=== PATIENT | female | born 2000 | race Caucasian/White ===

== ENCOUNTER 2022-12-19 17:21 | Emergency (ER) | payer OTHER, SELFPAY ==
[2022-12-19 17:57] VITALS: BP 117/78; PULSE 106; RESP 18; TEMP 36.9; O2SAT 99; BMI 3374.4
--- NOTE | 2022-12-19 17:57 | ED_ITS ---
HPI - Eye Problem General Chief complaint: Eye Problems <SYED Meehan - Last Filed: 12/19/22 18:04> Stated complaint: left eye blurry vision, injury from contacts <SYED Meehan - Last Filed: 12/19/22 18:04> Time Seen by Provider: 12/19/22 18:58 <SYED Meehan - Last Filed: 12/19/22 18:04> Source: patient <Viridiana Lamb MD - Last Filed: 12/19/22 19:33> Mode of arrival: ambulatory <Viridiana Lamb MD - Last Filed: 12/19/22 19:33> Limitations: no limitations <Viridiana Lamb MD - Last Filed: 12/19/22 19:33> History of Present Illness HPI Narrative: 22-year-old female came in for evaluation of left eye blurry vision for the past week, patient is here insisting on Reyes lens irrigation of the left eye with normal looking left eye with no redness or injection or discharge. About a week ago patient reportedly had Reyes lens irrigation to the right eye at [facility] last week because patient insisted to have it done after she looked it up online, patient was evaluated by an eye doctor last week who reassured the patient and was told everything is fine and does not need irrigation however patient presented to the ED today insisting on Reyes lens irrigation of the left eye. Patient with history of OCD she would feel much better if she has Reyes lens placed in her left eye and irrigated. <Viridiana Lamb MD - Last Filed: 12/19/22 19:33> Related Data Allergies/adverse reactions: Allergies Allergy/AdvReac Type Severity Reaction Status Date / Time No Known Allergies Allergy Verified 12/19/22 18:04 <SYED Meehan - Last Filed: 12/19/22 18:04> Review of Systems Review of Systems: All other systems are reviewed and are negative Constitutional: Reports as per HPI and Reports no additional constitutional complaints Eyes: Reports as per HPI and Reports no additional eye complaints Reports system reviewed and no additional complaints, except as documented Cardiovascular: Reports as per HPI and Reports no additional cardiovascular complaints Respiratory: Reports as per HPI and Reports no additional respiratory complaints Gastrointestinal: Reports as per HPI and Reports no additional gastrointestinal complaints Genitourinary: Reports no additional female genitourinary complaints Musculoskeletal: Reports no additional musculoskeletal complaints Skin/Breast: Reports system reviewed and no additional complaints, except as docu Psychiatric: Reports no additional psychiatric complaints Endocrine: Reports no additional endocrine complaints Hematologic/Lymphatic: Reports no additional hematologic/lymphatic complaints Allergic/Immunologic: Reports no additional allergic/immunologic complaints Reports system reviewed and no additional complaints, except as documented and Reports Abnormal speech present <Viridiana Lamb MD - Last Filed: 12/19/22 19:33> [facility] Social History Social History: Social History Advance Directives: No Advance Directives Information Provided: No <SYED Meehan - Last Filed: 12/19/22 18:04> Physical Exam Vital Signs: Vital Signs: Last Vital Signs Temp 98.5 F 12/19/22 17:57 Pulse 106 H 12/19/22 17:57 Resp 18 12/19/22 17:57 BP 117/78 12/19/22 17:57 Pulse Ox 99 12/19/22 17:57 O2 Del Method Nasal Cannula 12/19/22 17:57 BMI result Body Mass Index 3374.4 <SYED Meehan - Last Filed: 12/19/22 18:04> Vital Signs: Last Vital Signs Temp 98.5 F 12/19/22 17:57 Pulse 106 H 12/19/22 17:57 Resp 18 12/19/22 17:57 BP 117/78 12/19/22 17:57 Pulse Ox 99 12/19/22 17:57 O2 Del Method Nasal Cannula 12/19/22 17:57 BMI result Body Mass Index 3374.4 Vital signs have been reviewed as appeared to be correct. Blood pressure normal. Heart rate normal. Respiration rate normal. Temperature normal. Oxygen saturation normal. <Viridiana Lamb MD - Last Filed: 12/19/22 19:33> Appearance: Anxious, Alert. Oriented X3. No acute distress. Head: Normal external exam. Normocephalic. Atraumatic. No Dotson signs noted. No raccoon eyes noted Eyes: PERRLA. EOMI. Conjunctiva and sclera normal. Eyelids normal. VA 20/20 right/20/20 left, normal clear sclera, no corneal abrasion, no foreign body is appreciated under eyelids bilaterally. unremarkable retinal exam. ENT: TM's Normal. Pharynx normal. Uvula midline. Moist mucous membranes. No trismus noted. No drooling noted. No muffled voice noted. Neck: Normal inspection. Neck supple. FROM. No adenopathy. Thyroid Normal. No meningeal signs. No neck mass noted. CVS: Normal heart rate and rhythm. Heart sound normal. No murmurs noted. Pulses normal throughout. Respiratory: No respiratory distress. Painless inspiration. Breath sounds normal. No wheezes/rales/rhonchi noted. Chest nontender. No accessory muscle usage noted or decreased air movement noted. Abdomen: Soft and nontender. Bowel sounds normal in all 4 quadrants. No distention noted. No organomegaly noted. No visible injury noted. Back: No CVA tenderness. Full range of motion noted. Skin: Skin warm and dry. Normal skin color. Normal skin turgor. No rashes/lesions/lacerations noted. Extremities: No lower extremity edema. Extremities exhibit normal range of motion. Extremities nontender. Neuro: Oriented X 3. Cranial nerve exam: II-XII are grossly intact No motor deficit. No sensory deficit. Reflexes normal. <Viridiana Lamb MD - Last Filed: 12/19/22 19:33> Course Course Course Narrative: RME - 22 yo female presents to the ER for evaluation of left eye blurriness with ongoing FB sensation after eye lash extensions got into her eyes 1 week ago. Seen at [facility] 1 week ago, had morgans lens wash out on the right eye only and was d/c with erythromycin. Very poor historian, tara in triage. Plan: visual acuity, stain and examine the left eye <SYED Meehan - Last Filed: 12/19/22 18:04> Reevaluation(s) Reevaluation #1: 22-year-old female with history of OCD came in asking for specifically left eye Reyes lens irrigation, I felt there is no indication to place reyes lens with the risk of corneal abrasion, particularly in light of normal visual acuity and eye exam. Patient was evaluated last week as patient reported by eye doctor who also reassured the patient and told the patient there is no indication for the Reyes lens irrigation. After patient reassurance and discussion that there is no indication patient still unhappy. Patient with history of OCD, anxiety, patient declined SI, HI, or auditory hallucination at this point. <Viridiana Lamb MD - Last Filed: 12/19/22 19:33> Time: 19:29 <Viridiana Lamb MD - Last Filed: 12/19/22 19:33> Medical Decision Making Differential Diagnosis Differential Diagnoses: The differential diagnosis associated with the presentation includes (OCD disorder, conjunctivitis, foreign body in the eye.) <Viridiana Lamb MD - Last Filed: 12/19/22 19:33> Discharge Plan Discharge Clinical Impression: Anxiety, Blurry vision, left eye <SYED Meehan - Last Filed: 12/19/22 18:04> Patient Disposition: Home, Self-Care <SYED Meehan - Last Filed: 12/19/22 18:04> Instructions: Generalized Anxiety Disorder (ED) <YSED Meehan - Last Filed: 12/19/22 18:04>
[2022-12-19 19:25] VITALS: BP 128/71; PULSE 74; RESP 16; TEMP 36.8; O2SAT 98
== END 2022-12-19 20:18 | disposition home or self-care (01) ==
PROVIDERS: Emergency Provider Emergency Medicine
DX: F41.9 Anxiety disorder, unspecified (principal); H53.8 Other visual disturbances
CPT/HCPCS: 99283

== ENCOUNTER 2022-12-22 18:43 | Emergency (ER) | payer OTHER, SELFPAY ==
--- NOTE | 2022-12-22 18:46 | ED.GENADULT ---
HPI - General Adult General Chief complaint: Eye Problems <SYED Lino - Last Filed: 12/22/22 18:50> Stated complaint: Seen recently/ blurry eye vision <SYED Lino - Last Filed: 12/22/22 18:50> Time Seen by Provider: 12/22/22 22:46 <SEYD Lino - Last Filed: 12/22/22 18:50> Source: patient, RN notes reviewed and old records reviewed <Masoud Antonio - Last Filed: 12/22/22 23:02> Mode of arrival: ambulatory <Masoud Antonio - Last Filed: 12/22/22 23:02> Limitations: no limitations <Masoud Antonio - Last Filed: 12/22/22 23:02> History of Present Illness HPI narrative: 22-year-old female presents for evaluation of ?I need my left eye irrigated. ? Patient states that she has somewhat blurry vision for the last week and a half. She was seen at [facility] and had a morning and lines flush her left eye after she had an eyelash stuck in it. She was discharged with erythromycin at that time. She came here on 12/19/2022 requesting irrigation of the left eye. Due to the lack of physical exam findings, and Italo lens was not inserted and she did not have any flushing of the left eye. She does not wear contacts or glasses. She reports that she is able to see and read out of both eyes. She denies any foreign body sensation <Masoud Antonio - Last Filed: 12/22/22 23:02> Related Data Allergies/adverse reactions: Allergies Allergy/AdvReac Type Severity Reaction Status Date / Time No Known Allergies Allergy Verified 12/22/22 18:48 <SYED Lino - Last Filed: 12/22/22 18:50> Review of Systems Eyes: Eyes: Denies blind spots, Reports blurry vision, Denies change in vision, Denies eye discharge, Denies dry eyes, Denies floaters, Denies irritation, Denies itchy eyes, Denies loss of vision and Denies eye pain <Masoud Antonio - Last Filed: 12/22/22 23:02> Neurologic: Denies loss of vision <Masoud Antonio - Last Filed: 12/22/22 23:02> Allergic/Immunologic: Allergic/Immunologic: Denies itchy eyes <Masoud Antonio - Last Filed: 12/22/22 23:02> PMFSH Social History Social History: Social History Smoked in Last 30 Days: No Use of substances other than those prescribed or required for medical reasons: No Advance Directives: No Advance Directives Information Provided: Yes Patient : No <SYED Lino - Last Filed: 12/22/22 18:50> Physical Exam ED Vital Signs: Vital Signs - 24 hr 12/22/22 18:48 12/22/22 21:17 Temperature 98.6 F 97.8 F Pulse Rate 87 84 Respiratory Rate 18 14 Blood Pressure 111/70 118/65 Pulse Oximetry 98 99 Oxygen Delivery Method Room Air Room Air BMI result Body Mass Index 24.2 <SYED Lino - Last Filed: 12/22/22 18:50> Vital Signs - 24 hr 12/22/22 18:48 12/22/22 21:17 Temperature 98.6 F 97.8 F Pulse Rate 87 84 Respiratory Rate 18 14 Blood Pressure 111/70 118/65 Pulse Oximetry 98 99 Oxygen Delivery Method Room Air Room Air BMI result Body Mass Index 24.2 <Masoud Antonio - Last Filed: 12/22/22 23:02> Const General: healthy appearing, comfortable, no acute distress, alert and awake <Masoud Antonio - Last Filed: 12/22/22 23:02> Nutritional Appearance: well nourished <Masoud Antonio - Last Filed: 12/22/22 23:02> Orientation/consciousness: patient oriented x3 <Masoud Antonio - Last Filed: 12/22/22 23:02> HENMT Head: Yes normocephalic and Yes atraumatic <Masoud Antonio - Last Filed: 12/22/22 23:02> Throat: Yes posterior oropharynx normal <Masoud Antonio - Last Filed: 12/22/22 23:02> Eyes Eyelids: Yes eyelids normal <Masoud Antonio - Last Filed: 12/22/22 23:02> Conjunctivae: conjunctivae normal <Masoud [employer] - Last Filed: 12/22/22 23:02> Sclerae: sclerae normal <Masoud [employer] - Last Filed: 12/22/22 23:02> Corneas: corneas normal <Masoud [employer] - Last Filed: 12/22/22 23:02> Pupils: Equal, round and reactive pupils present, Pupils normal by confrontation and Pupil accommodation reflex normal <Masoud [employer] - Last Filed: 12/22/22 23:02> EOM: EOMs intact bilaterally <Masoud [employer] - Last Filed: 12/22/22 23:02> Neck Neck: Yes full ROM <Masoud O Last Filed: 12/22/22 23:02> Resp Effort & Inspection: normal respiratory effort, able to speak in complete sentences, no audible wheezes and not labored <Masoud O Last Filed: 12/22/22 23:02> Auscultation: clear to auscultation bilaterally <Masoud Last Filed: 12/22/22 23:02> Cardio Rate: regular rate <Masoud Last Filed: 12/22/22 23:02> Rhythm: regular rhythm <Masoud Last Filed: 12/22/22 23:02> GI Inspection: No distended <Masoud OJairo Filed: 12/22/22 23:02> Palpation (GI): Soft to palpation, not firm, nontender, no guarding and not rigid <Masoud [employer] - Last Filed: 12/22/22 23:02> Auscultation: normoactive bowel sounds <Masoud O Last Filed: 12/22/22 23:02> Skin General skin exam: no rashes or lesions noted and elasticity normal <Masoud OJairo - Last Filed: 12/22/22 23:02> Neuro General: patient oriented x3 <Masoud OJairo - Last Filed: 12/22/22 23:02> Cranial nerves: Yes CN's II-XII intact bilaterally, Yes Equal, round and reactive pupils present and Yes Bilaterally intact EOM present <Masoud Antonio - Last Filed: 12/22/22 23:02> Cognition (Neuro): normal cognition <Masoud Antonio - Last Filed: 12/22/22 23:02> Extrem Other: Moving all extremities well without any obvious deformities <Masoud Antonio - Last Filed: 12/22/22 23:02> Course Course Course Narrative: RME performed by Gianna Callahan PA-C. Patient is a 22 year old assigned female at presenting to the emergency department with left eye irritation. Patient would like to have a Italo lens rinse. Patient placed back in the waiting room pending room availability. <SYED Lino - Last Filed: 12/22/22 18:50> Medical Decision Making Medical Decision Making MDM Narrative: There is no obvious foreign body to left eye, no conjunctival injection, now ulceration, no hyphema. No objective findings of any pathology. The patient describes blurry vision but declines visual acuity testing today. The patient is very adamant that she warm her I irrigated. I did irrigate the eyes with 10 cc of normal saline, flushed only. No more lungs was use. I encouraged the patient to follow-up with ophthalmology for him further eye complaints <Masoud Antonio - Last Filed: 12/22/22 23:02> Differential Diagnosis Anxiety Corneal abrasion Blurry vision Foreign body <Masoud Antonio - Last Filed: 12/22/22 23:02> Discharge Plan Discharge Clinical Impression: Anxiety <SYED Lino - Last Filed: 12/22/22 18:50> Patient Disposition: Home, Self-Care <SYED Lino - Last Filed: 12/22/22 18:50> Instructions: Anxiety (ED) <SYED Lino - Last Filed: 12/22/22 18:50> Additional Instructions: Follow-up with Ophthalmology, Dr. López for any further issues regarding your eyes <SYED Lino - Last Filed: 12/22/22 18:50> Referrals: Josep Ferro [Physician] - <SYED Lino - Last Filed: 12/22/22 18:50>
[2022-12-22 18:48] VITALS: BP 111/70; PULSE 87; RESP 18; TEMP 37; O2SAT 98; BMI 24.2
--- NOTE | 2022-12-22 21:16 | PC.NURSE ---
this rn assumed care of pt @ 2111. pt calm and cooperative awaiting ed provider on stretcher at this time. VSS. pt educated on use of call gottlieb. no new needs at this time
[2022-12-22 21:17] VITALS: BP 118/65; PULSE 84; RESP 14; TEMP 36.6; O2SAT 99
[2022-12-22 23:09] VITALS: BP 111/72; PULSE 87; RESP 18; TEMP 36.6; O2SAT 100
== END 2022-12-22 23:15 | disposition home or self-care (01) ==
PROVIDERS: Emergency Provider Emergency Medicine
DX: F41.9 Anxiety disorder, unspecified (principal)
CPT/HCPCS: 99282; 99284

== ENCOUNTER 2023-01-27 09:00 | Emergency (ER) | payer OTHER, SELFPAY ==
[2023-01-27 09:07] VITALS: BP 105/53; PULSE 91; RESP 16; TEMP 36.9; O2SAT 100; BMI 24.2
--- NOTE | 2023-01-27 09:14 | PC.NURSE ---
Patient presents for HIV testing. 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 Patient states that she touches their things and wants to be sure that she didn't contract HIV from these interactions.
--- NOTE | 2023-01-27 09:16 | ED_ITS ---
HPI - General Adult General Chief complaint: General Medical Stated complaint: HIV testing Time Seen by Provider: 01/27/23 09:16 Source: patient Mode of arrival: ambulatory Limitations: no limitations History of Present Illness HPI narrative: 22 y/o female presents to the ER for possible HIV testing. 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 She denies any known direct bodily fluid exposure. She can recall picking up one of their cups without gloves but does not know if she touched saliva directly and she has no open wounds on her hands. No needle sticks. She thinks they are all on HAART. MD complaint: low risk HIV exposure Onset (ago): week(s) Relieving factors: none Exacerbating factors: none Associated symptoms: denies other symptoms Treatments prior to arrival: none Related Data Allergies Allergy/AdvReac Type Severity Reaction Status Date / Time No Known Allergies Allergy Verified 12/22/22 18:48 Review of Systems Review of Systems: Yes all other systems are reviewed and are negative [facility] Social History Social History Alcohol intake: never Smoked in Last 30 Days: No Use of substances other than those prescribed or required for medical reasons: No Advance Directives: No Advance Directives Information Provided: No Physical Exam ED Vital Signs: Vital Signs - 24 hr 01/27/23 09:07 Temperature 98.4 F Pulse Rate 91 Respiratory Rate 16 Blood Pressure 105/53 L Pulse Oximetry 100 Oxygen Delivery Method Room Air BMI result Body Mass Index 24.2 Appearance: Alert. Oriented X3. No acute distress. HEENT: normal inspection CVS: Normal heart rate and rhythm. Pulses normal. Respiratory: No respiratory distress. speaks in complete sentences Skin: Skin warm and dry. Normal skin color. Normal skin turgor. No rashes. Extremities: normal inspection x4. Neuro: Oriented X 3. grossly normal, nonfocal. stready gait Medical Decision Making Medical Decision Making [facility] Narrative: 22 yo female presents to the ER for evaluation of potential HIV exposure at work. She had no high risk exposure and question of a very low risk exposure. Does not require testing and post-exposure treatment today. She was encouraged to go to [facility] or local [facility] for routine HIV testing. She was counseled and reassured. All questions were answered. stable for d/c home. Differential Diagnosis Differential Diagnoses: The differential diagnosis associated with the presentation includes low risk HIV exposure, high risk HIV exposure, anxiety Critical Care Time Critical Care Time Critical Care Time: No Discharge Plan Discharge Clinical Impression: HIV exposure Patient Disposition: Home, Self-Care Instructions: HIV Infection (DC) Additional Instructions: You had no high risk exposure to HIV. Your risk is extremely low. If you would like routine HIV testing you [facility] [address] [place] [address] [facility] [address] Referrals: [facility] [Provider Group] Interventions: ED Discharge Assessment Last Done: 01/27/23 09:51
[2023-01-27 09:51] VITALS: BP 105/60; PULSE 60; RESP 14; O2SAT 99
== END 2023-01-27 09:52 | disposition home or self-care (01) ==
PROVIDERS: Emergency Provider Emergency Medicine
DX: Z20.6 Contact with and (suspected) exposure to human immunodeficiency virus [HIV] (principal)
CPT/HCPCS: 99283; 99284

== ENCOUNTER 2023-04-08 08:20 | Emergency (ER) | payer OTHER, SELFPAY ==
[2023-04-08 08:25] VITALS: BP 106/68; BP 118/84; PULSE 107; PULSE 95; RESP 16; TEMP 36.6; O2SAT 97; O2SAT 99; BMI 24.2
--- NOTE | 2023-04-08 08:30 | ED.GENADULT ---
HPI - General Adult General Chief complaint: General Medical Stated complaint: CHOKED ON RICE/FEELS IN UPPER CHEST PER EMS Source: patient and EMS Mode of arrival: EMS Limitations: no limitations History of Present Illness HPI narrative: 22-year-old female presents with foreign body sensation in throat patient reports last night she choked on rice. Since then has been having a weird sensation in throat. She states she feels like it is in the middle of her throat. She has not been able to drink water or eat she states because it is difficult to swallow. One of her fears is aspiration pneumonia, she looked it up on google. Denies chest pain, shortness of breath, nausea, vomiting, abdominal pain, headache, vision changes in dizziness Related Data Allergies Allergy/AdvReac Type Severity Reaction Status Date / Time No Known Allergies Allergy Verified 12/22/22 18:48 Review of Systems Review of Systems: Constitutional : No Weight loss, No Fever, No Chills, No Fatigue, No Malaise ENT/Mouth : No sore throat, No Rhinorrhea Eyes: No Eye Pain, No Swelling, No Redness Cardiovascular : No Chest Pain, No SOB, No Dyspnea on Exertion, No Orthopnea, No Edema, No Palpitations Respiratory : No Cough, No Sputum, No Wheezing Gastrointestinal : No Nausea, No Vomiting, No Diarrhea, No Constipation, No abdominal Pain, No Hematochezia, No Melena Genitourinary : No Dysuria, No Urinary Frequency, No Hematuria, Musculoskeletal : No joint pain, No Myalgias, No Joint Swelling Skin : No Skin Lesions, No rash Neuro : No Weakness, No Numbness, No Dizziness, No Headache Psych : No Anxiety/Panic, No Depression All other systems reviewed and are negative Yes all other systems are reviewed and are negative [facility] Past Medical History Attestation statement: The following information was validated with the patient. Source: old records reviewed and nursing notes reviewed Social History Social History Alcohol intake: never Smoked in Last 30 Days: No Use of substances other than those prescribed or required for medical reasons: No Advance Directives: No Advance Directives Information Provided: No Physical Exam ED Vital Signs: Vital Signs - 24 hr 04/08/23 08:25 Temperature 98 F Pulse Rate 95 Respiratory Rate 16 Blood Pressure 106/68 Pulse Oximetry 97 Oxygen Delivery Method Room Air BMI result Body Mass Index 24.2 Vital signs stable Appearance: Alert.? Oriented X3.? No acute distress.? Head: Normocephalic, atraumatic, no step-offs or deformities Eyes: Pupils equal, round and reactive to light.? ENT: Pharynx normal.? Neck: Normal inspection.? Neck supple.? CVS: Normal heart rate and rhythm.? Pulses normal.? Respiratory: No respiratory distress.? Breath sounds normal.? no stridor Abdomen: Soft and nontender.? Skin: Skin warm and dry.? Normal skin color.? Normal skin turgor.? Extremities: No lower extremity edema.? No calf ttp. 5/5 strength to bilateral upper and lower extremities Neuro: Oriented X 3.? No motor deficit.? No sensory deficit. CN 2-12 intact Medical Decision Making Medical Decision Making [facility] Narrative: [id number] 22-year-old female presents with foreign body sensation in throat reports she choked on a rice and since then has been having a weird sensation physical exam benign. No signs of respiratory distress. No stridor. Likely foreign body sensation however unlikely foreign body occluding airway, there could be trauma from choking causing discomfort however no signs of airway compromise. I do not suspect pneumothorax, pneumonia, or acute aspiration PNA . immediately upon patient's arrival I had her swish with yocasta araceli, and spit it out. Patient reports that this helped a lot. Able to tolerate p.o. drinking yocasta araceli without an issue. Tolerating solids. plan will have her swish and spit with yocasta araceli. No indication for imaging. Patient tolerating p.o.. Will have her follow-up with GI. Differential Diagnosis Differential Diagnoses: The differential diagnosis associated with the presentation includes Likely foreign body sensation however unlikely foreign body, there could be trauma from choking causing discomfort however no signs of airway compromise. I do not suspect pneumothorax, pneumonia, aspiration. Admission/Observation Consideration of admission/observation: Escalation of care including admission/observation considered unlikely Tests considered The following testing was considered but not selected: No signs of threatened airway, no stridor respiratory issues, no signs of distress. No indication for imaging. No indication for GI consult at this time it could be done on an outpatient basis. Critical Care Time Critical Care Time Critical Care Time: No Discharge Plan Discharge Clinical Impression: Foreign body sensation in throat Patient Disposition: Home, Self-Care Additional Instructions: Take your medications as prescribed. If you were prescribed antibiotics today, it is important that you take your medication to their entirety, do not skip any doses, do not finish them early. Follow-up with your primary care provider this week. Follow-up with the Gastroenterology team if needed Return to the emergency department with new or worsening symptoms. Such as fevers, chills, chest pain, shortness of breath, nausea, vomiting, dizziness, headache, vision changes, lethargy In case of emergency call 911 Referrals: [facility] [Provider Group] - 1 day
--- NOTE | 2023-04-08 08:34 | PC.NURSE ---
pt axox4, VSS, respirations even and unlabored, sats 98% RA, pt arrived via ems stating was eating rice felt it went down wrong pipe; concerned for aspiration pneumonia. pt states feeling better now; denies cp/sob/n/v/d. lung sounds cta. cap refill <3 seconds. skin wpd. airway patent. awaiting primary eval. call gottlieb within reach.
== END 2023-04-08 09:02 | disposition home or self-care (01) ==
PROVIDERS: Emergency Provider Emergency Medicine
DX: R09.89 Other specified symptoms and signs involving the circulatory and respiratory systems (principal)
CPT/HCPCS: 99283

== ENCOUNTER 2023-06-24 13:24 | Outpatient (AMB) | payer OTHER, SELFPAY ==
--- NOTE | 2023-06-24 14:48 | MHC.OFFWIV ---
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 She states she had an ear infection about 2 weeks ago which she was prescribed augment for and it helped but now it is bakc, she believes its from her ear piece from work. Patient Tobacco Use Status: Never used Tobacco Allergies No Known Allergies Allergy (Verified 06/24/23 15:47) Medication List - Last Reconciled 06/24/23 by Ishmael Morrissey MD hydrocortisone 2.5% 1 appl topical BID PRN jzfcgxat-clujiaqzi-YG 3.5-10,000-1 mg/mL-unit/mL-% 4 drps otic (ears) Q8H Do you need a note to return to daycare/school/sports/work: Yes HPI BARKEEPER RT Ear Infection HPI Details Patient presents for a sick visit. Reporting symptoms of sinus congestion, sore throat and difficulty swallowing. Low-grade fever. No family member is sick. No recent travel. Patient reports symptoms of malaise and fatigue. [facility] Social History Alcohol intake: never Patient Tobacco Use Status: Never used Tobacco Physical Exam Vital Signs: Last Vital Signs Pulse 60 06/24/23 14:50 BP 110/70 06/24/23 14:50 Pulse Ox 98 06/24/23 14:50 Oxygen Delivery Method Room Air 06/24/23 14:50 BMI result Body Mass Index 28.3 HEENT Other: Right ear: Erythema over the external ear: Ear canal is crusted. Assessment & Plan Assessment & Plan (1) Otitis externa: Code(s): H60.90 - Unspecified otitis externa, unspecified ear Qualifiers: Otitis externa type: diffuse Laterality: right Plan Prescriptions have been called in. Medications: New otqobprw-busfphwlh-EA 3.5-10,000-1 mg/mL-unit/mL-% 4 drps otic (ears) Q8H 10 mL 0RF hydrocortisone 2.5% 1 appl topical BID PRN 20 grams 0RF skin irritation hydrocortisone 2.5% 1 appl topical BID PRN 20 grams 0RF skin irritation Coding Level of Care Code Est Pt Level 3 (12921) Diagnoses Otitis externa H60.90 Otitis externa type: diffuse Laterality: right
[2023-06-24 14:50] VITALS: BP 110/70; PULSE 60; O2SAT 98; BMI 28.3
== END 2023-06-24 16:11 | disposition home or self-care (01) ==
LOC: HO.HMGWI 13:24
PROVIDERS: Visit Provider Internal Medicine
DX: H60.91 Unspecified otitis externa, right ear (principal)
CPT/HCPCS: 99213

== ENCOUNTER 2023-07-22 12:02 | Outpatient (AMB) | payer OTHER, SELFPAY ==
--- OUTSIDE RECORDS SUMMARY | 2023-07-22 12:03 | XMS_ITS | Continuity of Care Document ---
Author Name Unknown Organization [facility] Address [address] [place] [id number] Care Team Providers Care Director Payer Name Role Phone Not on Staff, PCP Primary Care Physician Unavail able Encounter [facility] Date(s): 06/10/23 - 07/10/23 [facility] [address] [id number] Allergies, Adverse Reactions, Alerts No Known Allergies Social History Social History Type Response Sex Female Patient Care team information Care Team Personnel Name: Not on Staff, PCP Position: [facility] Physician (General Medicine) Member Role: PCP Care Team Related Persons Name: NAALIA GOETZ Address: home [address] [place] [address] Name: MARLY NAVARRETE Address: home [address] [place] [address]
[2023-07-22 14:29] VITALS: BP 108/70; PULSE 102; TEMP 36.6; O2SAT 98; BMI 27.1
--- NOTE | 2023-07-22 14:29 | MHC.OFFWIV ---
Intake Vital Signs 07/22/23 14:29 Height 4 ft 11 in Weight 60.838 kg BMI 27.1 BP 108/70 Blood Pressure Location Rt brachial Position Sitting Pulse 102 H Pulse Source Pulse Oximeter Temp 97.8 F Temp Source Temporal Artery Scan Pulse Oximetry (%) 98 Intake Visit Reasons: EP, Right ear discharge, still not getting better Intake Note: pt is here for c/o right ear discharge Patient Tobacco Use Status: Never used Tobacco Allergies No Known Allergies Allergy (Verified 07/22/23 14:29) Do you need a note to return to daycare/school/sports/work: Yes HPI EP, Right ear discharge, still not getting better HPI Details Patient presents with continued pain swelling and purulent drainage of the right ear. She was treated 1 month ago with a Zithromax and per chart which she states cleared the infection. Infection returned she has not used any further treatment or otic drops. 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 She has not used any other medications or tried flushing or injuries foreign bodies to her ear at this point. Her hearing is reduced but likely canal is edematous and full of discharge. [facility] Social History Alcohol intake: never Patient Tobacco Use Status: Never used Tobacco Review of Systems Const Reports as per HPI and Reports no additional complaints ENT Reports no additional complaints and Reports as per HPI Neuro Reports no additional complaints and Reports as per HPI Physical Exam Vital Signs: Last Vital Signs Temp 97.8 F 07/22/23 14:29 Pulse 102 H 07/22/23 14:29 BP 108/70 07/22/23 14:29 Pulse Ox 98 07/22/23 14:29 BMI result Body Mass Index 27.1 Const General: cooperative, comfortable and no acute distress Orientation/consciousness: patient oriented x3 HEENT Head: Yes normal to inspection Ears: hearing grossly normal bilaterally, Abnormal EAC present (Right there is purulent drainage blocking the TM and in ear canal), external ear abnormal (Right with noted dried discharge erythema and edema just outside the ear ca) and no periauricular adenopathy Neck Neck: Yes no lymphadenopathy Resp Effort & Inspection: normal respiratory effort Auscultation: clear to auscultation bilaterally Cardio Rate: regular rate Rhythm: regular rhythm Heart sounds: S1 normal heart sound present and S2 normal heart sound present Neuro General: patient oriented x3 Assessment & Plan Assessment & Plan (1) Recurrent otitis externa: Code(s): H60.90 - Unspecified otitis externa, unspecified ear Qualifiers: Laterality: right Qualified Code(s): H60.91 - Unspecified otitis externa, right ear Plan: Patient to start otic drops at this time. I have collected a culture today of the drainage. Will adjust treatment as needed based on culture. Consider Augmentin or Diflucan based on culture results. Advised patient she will receive a call by Saturday with culture results and new plan if needed. Consider referral to ENT p.r.n.. ER in the meantime if severe ear pain fever or facial swelling occur. Orders: Orders Routine Culture w Gram Stain Today H60.90 - Unspecified otitis externa, unspecified ear Medications: Refilled gzezvhpq-smykpqrbt-XD 3.5-10,000-1 mg/mL-unit/mL-% 4 drps otic (ears) Q8H 10 mL 0RF icbrgipl-qazflsxrj-AZ 3.5-10,000-1 mg/mL-unit/mL-% 4 drps otic (ears) Q8H 10 mL 0RF Coding Level of Care Code Est Pt Level 3 (18249) Diagnoses Recurrent otitis externa of right ear H60.91 Laterality: right
== END 2023-07-22 14:53 | disposition home or self-care (01) ==
PROVIDERS: Visit Provider Physician Assistant
DX: H60.91 Unspecified otitis externa, right ear (principal)
CPT/HCPCS: 99213

== ENCOUNTER 2023-07-22 15:19 | Outpatient (REF) | payer OTHER, SELFPAY | END 2023-07-22 15:20 | disposition home or self-care (01) | LOC: HO.LAB 15:19 | PROVIDERS: Visit Provider Physician Assistant | DX: H60.90 Unspecified otitis externa, unspecified ear (principal) | CPT/HCPCS: 87070; 87077; 87186; 87205 ==

== ENCOUNTER 2023-09-11 15:25 | Emergency (ER) | payer OTHER, SELFPAY ==
--- NOTE | ~2023-09-11 | XR_ITS ---
EXAMINATION: XR CHEST CLINICAL INFORMATION: Cough. Intermittent mucus. COMPARISON: None available. TECHNIQUE: 2 views of the chest were obtained. FINDINGS: Lungs clear. No pleural effusions. Heart and pulmonary vessels normal. XR/XR chest 2V IMPRESSION: No active disease.
[2023-09-11 15:55] VITALS: BP 138/87; PULSE 97; RESP 18; TEMP 36.8; O2SAT 99
--- NOTE | 2023-09-11 15:55 | ED.URI ---
HPI - URI/Sore Throat General Chief Complaint: Upper Respiratory Symptoms Stated Complaint: Sore throat, cough, neck pain Time Seen by Provider: 09/11/23 18:19 Source: patient, RN notes reviewed and old records reviewed Mode of arrival: ambulatory History of Present Illness HPI Narrative: 22 yo F w/no sig PMHx presenting to the ED c/o sore throat, cough (intermittently productive), inflamed lymph nodes, and right ear pain x months. Also reports subjective fever. admits to finishing course of oral antibiotics and antibiotic ear drops about 2 weeks ago. denies fever, CP/ SOB, travel MD elicited complaint: cough, sore throat, rhinorrhea and nasal congestion Related Data Previous Rx's Medication Instructions Recorded nplaytew-nuplxrelu-rkmvuclbg 3.5 4 drp otic (ears) Q8H #10 mL 07/22/23 mg-10,000 unit/mL-1 % ear drops,susp sulfamethoxazole 800 1 tab PO Q12H 10 days #20 tabs 07/23/23 mg-trimethoprim 160 mg tablet (Bactrim DS) fluticasone propionate 50 2 spray intranasal DAILY #16 grams 09/11/23 mcg/actuation nasal spray,suspension (Flonase Allergy Relief) prednisone 20 mg tablet 40 mg (2 x 20 mg) PO DAILY 5 days 09/11/23 #10 tabs Allergies Allergy/AdvReac Type Severity Reaction Status Date / Time No Known Allergies Allergy Verified 07/22/23 14:29 Review of Systems Review of Systems: Constitutional: No Fever, +Chills ENT/Mouth: + Ear Pain, +Nasal Congestion, No Sinus Pain, No Hoarseness, +sore throat, +Rhinorrhea, No Swallowing Difficulty Cardiovascular: No Chest Pain, No SOB Respiratory: +Cough, + Sputum, No Wheezing Gastrointestinal: No Nausea, No Vomiting, No Diarrhea, No Constipation, No Abdominal pain Musculoskeletal: No joint pain, +Myalgias, No Joint Swelling Skin: No Skin Lesions, No rash Neuro: No Weakness Yes all other systems are reviewed and are negative Constitutional: Constitutional: Reports as per [facility] Past Medical History Attestation statement: The following information was validated with the patient. Source: old records reviewed Social History Social History Alcohol intake: never Patient Tobacco Use Status: Never used Tobacco Physical Exam Vital Signs: Vital Signs: Last Vital Signs Temp 98.3 F 09/11/23 15:55 Pulse 97 09/11/23 15:55 Resp 18 09/11/23 15:55 BP 138/87 09/11/23 15:55 Pulse Ox 99 09/11/23 15:55 O2 Del Method Room Air 09/11/23 15:55 BMI result Body Mass Index 0.6 Const: General: cooperative, healthy appearing and no acute distress Orientation/consciousness: patient oriented x3 Limitations: no limitations HEENT: Other: cerumen impaction to left ear, partially cleared with curette Head: Yes normal to inspection and Yes atraumatic Ears: hearing grossly normal bilaterally, TM's normal bilaterally and mastoids normal General nose exam: Normal external nose present Face and sinus: Yes normal facial exam Mouth: Normal oral and palatal mucosa present Throat: Yes posterior oropharynx normal, Yes tonsils normal, Yes uvula midline, No peritonsillar mass and No uvula laterally displaced Eyes: General: appearance normal, both eyes and all related structures EOM: EOMs intact bilaterally Neck: Neck: Yes normal visual inspection and Yes no meningeal signs Resp: Effort & Inspection: normal respiratory effort, no respiratory distress and no stridor Auscultation: clear to auscultation bilaterally, no crackles and no wheezes Cardio: Rate: regular rate Heart sounds: S1 normal heart sound present and S2 normal heart sound present Skin: Rashes: no rashes Wounds: no wounds Neuro: General: patient oriented x3, tone normal and no meningeal signs Cranial nerves: Yes CN's II-XII intact bilaterally Gait exam (Neuro): Normal gait present Extrem: General: Yes normal to inspection Course Course Course Narrative: RME: 22 yo M/F w/no sig PMHx presenting to the ED c/o sore throat, cough (intermittently productive), neck pain/inflamed lymph nodes, and right ear pain x months. Reports subj fever talking in complete sentences, no oropharyngeal swelling, uvula midline Viral testing, rapid strep ordered Full HPI, ROS and PE to be performed by primary ED provider. --COVID/FLU & Rapid strep negative XR chest 2V IMPRESSION: No active disease. Results discussed with patient including worrisome signs and symptoms and strict return precautions, and when to return to the emergency department. They verbalized understanding and feel safe for discharge at this time. Medical Decision Making Medical Decision Making [facility] Narrative: 22 yo F w/no sig PMHx presenting to the ED c/o sore throat, cough (intermittently productive), inflamed lymph nodes, and right ear pain x months. On exam VSS, NAD, nontoxic appearing, posterior oropharynx WNL, talking in complete sentences, uvula midline. Cerumen impaction noted to left ear, partially cleared. Bilateral TMs and mastoids WNL. Lungs CTA. Concern for viral illness and bronchitis. Rule out pneumonia. Low suspicion for mastoiditis, chronic otitis externa, otitis media. 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 Differential Diagnosis Differential Diagnoses: The differential diagnosis associated with the presentation includes As above Lab Data [facility] Lab Attestation statement: I reviewed the patient's lab results. Labs: Lab Results 09/11/23 Range/Units 16:33 COVID-19 (DIAMOND) Negative (Negative) COVID-19 Clin Com See Note Influenza Type A (LILIA) Negative (Negative) Influenza Type B (LILIA) Negative (Negative) Influenza A & B Note See Note S. pyogenes GrpA ILLIA Negative (Negative) Radiology Impression Discussion of test interpretation with radiology: I have reviewed the radiologist's reading. External Record Review External record reviewed: Inpatient record, Office record, Outpatient record, Prior outpatient labs, Prior outpatient radiology, Primary care record and Outside ED record Tests considered The following testing was considered but not selected: As above Discharge Plan Discharge Clinical Impression: Upper respiratory infection, Bronchitis Patient Disposition: Home, Self-Care Instructions: Upper Respiratory Infection (DC), Acute Bronchitis (ED) Additional Instructions: you tested negative for COVID, flu, strep and your x-ray is unremarkable Flonase is a nasal decongestant on prednisone as a steroid place take as prescribed Follow-up with her doctor If symptoms persist or worsen return to the ED Prescriptions: New prednisone 20 mg tablet 40 mg PO DAILY 5 Days Qty: 10 0RF fluticasone propionate [Flonase Allergy Relief] 50 mcg/actuation spray,suspension 2 spray intranasal DAILY Qty: 16 0RF Rx Instructions: administer into each nostril No Action sulfamethoxazole-trimethoprim [Bactrim DS] 800-160 mg tablet 1 tab PO Q12H 10 Days Qty: 20 0RF ymajulmf-hlojjfgox-AV 3.5-10,000-1 mg/mL-unit/mL-% drops,suspension 4 drp otic (ears) Q8H Qty: 10 0RF Referrals: Physician,Unknown J [Primary Care Provider] - 3 days
[2023-09-11 17:12] LABS: IDNOW Serial# 08D9AD1C; Influenza A Negative (Negative); Influenza B2 Negative (Negative)
[2023-09-11 17:13] LABS: COVID-19 Test Negative (Negative); IDNOW Serial# BCCEAD1C
[2023-09-11 17:36] LABS: IDNOW Serial# 08D9AD1C; Strep A Nucleic Acid Negative (Negative)
== END 2023-09-11 18:24 | disposition home or self-care (01) ==
PROVIDERS: Physician Assistant; Emergency Provider Emergency Medicine
DX: J06.9 Acute upper respiratory infection, unspecified (principal); J40 Bronchitis, not specified as acute or chronic; Z11.52 Encounter for screening for COVID-19
CPT/HCPCS: 71046; 87502; 87635; 87651; 99282; 99283

== ENCOUNTER 2023-09-19 15:09 | Outpatient (AMB) | payer OTHER, SELFPAY ==
[2023-09-19 15:23] VITALS: BP 100/68; PULSE 89; O2SAT 99; BMI 29.7
--- NOTE | 2023-09-19 15:23 | A.OFFPC_ITS ---
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 Intake Note: Pt is here to est care pt has PCOS Is last menstrual period known: Yes Last menstrual period: 07/30/23 Allergies No Known Allergies Allergy (Verified 09/19/23 15:46) Medication List - Last Reconciled 09/19/23 by DYLAN Maria aripiprazole 5 mg PO DAILY dextroamphetamine-amphetamine 15 mg ER 1 cap PO QAM sertraline 25 mg PO DAILY Tobacco use date assessed: 09/19/23 Dental Screening Dental Screen Date: 09/19/23 Did you have a dental visit in the last 12 months?: No Did you have a dental problem in the last 6 months where you did not have access to dental care?: No Was dental information given to patient?: No HPI HPI Comments History of Present Illness Details A patient is a 22-year-old female in today to establish care and have her physical exam. She has a past medical history significant for PCOS, mood disorder, acne vulgaris, schizophrenia. She is up-to-date on her immunizations except for COVID and influenza which she is declining. She has an established engineer technician he is up-to-date with well-woman visit and Pap smears. Her next Pap smear is already scheduled for 10/30/2023. She has a chief complaint of her toenails on bilateral feet being yellow colored. Denies any itching, burning, numbness, or scratching. She states that she was recently in a public shower and noticed that her nail started to change color after that. [facility] Medical History (Updated 09/20/23 @ 08:22 by DYLAN Maria) Mood disorder Acne vulgaris PCOS (polycystic ovarian syndrome) Social History Housing: Apartment Alcohol intake: never Patient Tobacco Use Status: Never used Tobacco e-Cigarette/Vaping Use: Never Used Second Hand Smoke Exposure: No service: No Current occupational status: employed Current occupation: [employer] Current occupational exposures/hazards: Yes Cognitive needs: No Hearing needs: No Vision needs: No Female Reproductive History Menstrual Date of last menstrual period: 07/30/23 Questionnaire PHQ-9 Over the last 2 weeks, how often have you been bothered by any of the following problems? 1. Little interest or pleasure in doing things: more than half the days 2. Feeling down, depressed, or hopeless: more than half the days 3. Trouble falling or staying asleep, or sleeping too much: several days 4. Feeling tired or having little energy: several days 5. Poor appetite or overeating: several days 6. Feeling bad about yourself - or that you are a failure or have let yourself or your family down: more than half the days 7. Trouble concentrating on things, such as reading the newspaper or watching television: more than half the days 8. Moving or speaking so slowly that other people could have noticed. Or the opposite - being so fidgety or restless that you have been moving around a lot more than usual: more than half the days 9. Thoughts that you would be better off or of hurting yourself in some way: not at all Total score: 13 Depression Screening Interpretation: Positive Depression Screening Done: Yes 31595 - PHQ-9 Billing: Yes Source: Developed by Drs. Kenyon Sinha, Lexi Richmond, Raciel Alford and colleagues, with an educational renzo from [employer]. Thrive Questionnaire Date Thrive assessed: 09/19/23 I am a: Patient What is your living situation today?: I have a steady place to live Within the past 12 months, did the food you bought not last and you didn't have the money to get more?: Never true Within the past 12 months, did you worry whether your food would run out before you got money to buy more?: Never true Do you have trouble paying for medicines?: No Do you have trouble getting transportation to medical appointments?: No Do you have trouble paying your heating and electricity bill?: No Do you have trouble taking care of your child, family member or friend?: No Do you have trouble with day-to-day activities such as bathing, preparing meals, shopping, managing finances, etc.?: No Are you currently unemployed and looking for a job?: No Are you interested in more education?: No AUDIT C Alcohol Use Questionnaire (AUDIT-C) 1. How often do you have a drink containing alcohol?: Never 3. How often do you have six or more drinks on one occasion?: Never Total Score: 0 [place]-7 AMB Questionnaire [place]IA-7 Date [place] - 7 assessed: 09/19/23 Feeling nervous, anxious, or on edge: 3 = Nearly every day Not being able to stop or control worryin = Nearly every day Worrying too much about different things: 3 = Nearly every day Trouble relaxin = Nearly every day Being so restless that it is hard to sit still: 3 = Nearly every day Becoming easily annoyed or irritable: 3 = Nearly every day Feeling afraid as if something awful might happen: 3 = Nearly every day Total [place]-7 score (0-4 normal; 5-9 mild; 10-14 moderate; 15-21 severe): 21 Source: Developed by Drs. Kenyon Sinha, Lexi Richmond, Raciel Alford and colleagues, with an educational renzo from [employer]. [place]-7 Assessment Billing [place]-7 Assessment Tool: [place]-7 Assessment 23641 Review of Systems Const Details: Constitutional : No Weight loss, No Fever, No Chills, No Fatigue, No Malaise ENT/Mouth : No sore throat, No Rhinorrhea Eyes: No Eye Pain, No Swelling, No Redness Cardiovascular : No Chest Pain, No SOB, No Dyspnea on Exertion, No Orthopnea, No Edema, No Palpitations Respiratory : No Cough, No Sputum, No Wheezing Gastrointestinal : No Nausea, No Vomiting, No Diarrhea, No Constipation, No abdominal Pain, No Hematochezia, No Melena Genitourinary : No Dysuria, No Urinary Frequency, No Hematuria, Musculoskeletal : No joint pain, No Myalgias, No Joint Swelling Skin : Admits toenails turning yellow color. Neuro : No Weakness, No Numbness, No Dizziness, No Headache Psych : Admits anxiety. Heme/Lymph: No Bruising, No Bleeding,No Lymphadenopathy Endocrine : No Polyuria, No Polydipsia Physical exam (Primary Care) Vital Signs: Last Vital Signs Pulse 89 09/19/23 15:23 BP 100/68 09/19/23 15:23 Pulse Ox 99 09/19/23 15:23 Oxygen Delivery Method Room Air 09/19/23 15:23 Care Plan Goal for BP management: Vital signs reviewed and are stable BMI result Body Mass Index 29.7 Tobacco/Smoking Status: Tobacco use Status Tobacco use date assessed 09/19/23 09/19/23 15:34 Patient Tobacco Use Status Never used Tobacco 09/19/23 15:34 e-Cigarette/Vaping Use Never Used 09/19/23 15:34 PHQ-9: PHQ-9 Score PHQ-9: Total score 13 09/19/23 16:29 Depression Screening Interpretation: Positive Thrive Assessment: Date of Thrive Assessment Date Thrive assessed 09/19/23 09/19/23 15:50 Const Other: Appearance: Alert.? Oriented X3.? No acute distress.? Head: Normocephalic, atraumatic, no step-offs or deformities Eyes: Pupils equal, round and reactive to light.? ENT: Pharynx normal.?TM intact and pearly girno. Neck: Normal inspection.? Neck supple.? CVS: Normal heart rate and rhythm.? Pulses normal.? Respiratory: No respiratory distress.? Breath sounds normal.? Abdomen: Soft and nontender.? Skin: Slight yellowing of toenails bilaterally. ? Extremities: No lower extremity edema.? No calf ttp. 5/5 strength to bilateral upper and lower extremities Back: No midline tenderness, no C-spine tenderness, full range of motion, no CVA tenderness bilaterally Neuro: Oriented X 3.? No motor deficit.? No sensory deficit. CN 2-12 intact Assessment and Plan Assessment & Plan (1) Anxiety: Comment: Patient recently had her therapist in psychiatric provider leave the practice. She is currently using sertraline for anxiety and depression. She has met with in office community development planner to help establish another mental health provider. Code(s): F41.9 - Anxiety disorder, unspecified (2) Deann onychomycosis: Comment: Will refer patient to Podiatry. Patient states she is going to start using styt-ojv-ymklwel antifungal medicine Code(s): B37.2 - Candidiasis of skin and nail Plan Patient should follow-up with a physical in 1 year. Orders: Orders Comprehensive Met. Panel 09/19/23 E87.8 - Other disorders of electrolyte and fluid balance, not elsewhere classified Complete Blood Count Auto Diff 09/19/23 Z13.0 - Encounter for screening for diseases of the blood and blood-forming organs and certain disorders involving the immune mechanism Lipid Panel 09/19/23 Z13.220 - Encounter for screening for lipoid disorders TSH reflex Free T4 09/19/23 Z13.29 - Encounter for screening for other suspected endocrine disorder Vitamin D 25-OH (D2 and D3) 09/19/23 Z13.21 - Encounter for screening for nutritional disorder UA CC w/rflx Micro + Cult 09/19/23 E86.0 - Dehydration Referrals Podiatry Referral B37.2 - Candidiasis of skin and nail Coding Level of Care Code Est Pt Level 3 (17363) Diagnoses Anxiety F41.9 Deann onychomycosis B37.2 Additional Codes [place]-7 Assessment Billing - [place]-7 Assessment Tool: [place]-7 Assessment 28695 ([id number]) Time Spent (min) 30
== END 2023-09-19 16:16 | disposition home or self-care (01) ==
PROVIDERS: Visit Provider Nurse Practitioner Primary Care
DX: Z00.01 Encounter for general adult medical examination with abnormal findings (principal); F41.9 Anxiety disorder, unspecified; B37.2 Candidiasis of skin and nail
CPT/HCPCS: 96127; 99395

== ENCOUNTER 2023-10-02 12:48 | Outpatient (AMB) | payer OTHER, SELFPAY ==
--- NOTE | 2023-10-02 13:01 | MHC.PC.OV ---
Vital Signs 10/02/23 13:02 Height 4 ft 11 in Weight 147 lb 6 oz BMI 29.8 BP 110/64 Blood Pressure Location Rt brachial Position Sitting Pulse 84 Pulse Source Pulse Oximeter Pulse Oximetry (%) 99 Oxygen Delivery Method Room Air Intake Visit Reasons: eval contusion on buttocks Intake Note: Pt jumped out her window in May and fell out on her bottom and she feels like she damaged her tissues on her right side and she is not using the muscle in the right side of her butt and is using the calf muscles Allergies No Known Allergies Allergy (Verified 10/02/23 13:06) Tobacco use date assessed: 10/02/23 HPI HPI Comments History of Present Illness Details Patient is a 22-year-old female in today for a problem visit. Patient states that 3 months prior to appointment she fell out of a second-story window and landed on her right gluteus som. She states that at the time she went to urgent care and got an x-ray which did not show any broken bones. Her complaint today is that she feels weakness on her left buttocks and thigh when trying to work out on the StairMaster. Patient states that there is a little bit of pain or discomfort, but generally feels the problem is weakness. Denies tingling or numbness, denies shortness of Breath chest pain, nausea, vomiting, diarrhea. Patient denies any saddle numbness. [facility] Medical History Mood disorder Acne vulgaris PCOS (polycystic ovarian syndrome) Social History Housing: Apartment Alcohol intake: never Patient Tobacco Use Status: Never used Tobacco e-Cigarette/Vaping Use: Never Used Second Hand Smoke Exposure: No service: No Current occupational status: employed Current occupation: [employer] Current occupational exposures/hazards: Yes Cognitive needs: No Hearing needs: No Vision needs: No Questionnaire Thrive Questionnaire Date Thrive assessed: 09/19/23 [place]-7 AMB Questionnaire [place]-7 Date [place] - 7 assessed: 09/19/23 Source: Developed by Drs. Kenyon Sinha, Lexi Richmond, Raciel Alford and colleagues, with an educational renzo from [employer]. Review of Systems Const Details: Constitutional : No Weight loss, No Fever, No Chills, No Fatigue, No Malaise Cardiovascular : No Chest Pain, No SOB, No Dyspnea on Exertion, No Orthopnea, No Edema, No Palpitations Respiratory : No Cough, No Sputum, No Wheezing Gastrointestinal : No Nausea, No Vomiting, No Diarrhea, No Constipation, No abdominal Pain, No Hematochezia, No Melena Genitourinary : No Dysuria, No Urinary Frequency, No Hematuria, Musculoskeletal : Admits some right glute discomfort/weakness. Skin : No Skin Lesions, No rash Neuro : No Weakness, No Numbness, No Dizziness, No Headache Psych : No Anxiety/Panic, No Depression All other systems reviewed and are negative Physical exam (Primary Care) Vital Signs: Last Vital Signs Pulse 84 10/02/23 13:02 BP 110/64 10/02/23 13:02 Pulse Ox 99 10/02/23 13:02 Oxygen Delivery Method Room Air 10/02/23 13:02 Care Plan Goal for BP management: Vital signs reviewed and stable BMI result Body Mass Index 29.8 Tobacco/Smoking Status: Tobacco use Status Tobacco use date assessed 10/02/23 10/02/23 13:09 Patient Tobacco Use Status Never used Tobacco 10/02/23 13:01 e-Cigarette/Vaping Use Never Used 10/02/23 13:01 Thrive Assessment: Date of Thrive Assessment Date Thrive assessed 09/19/23 10/02/23 13:01 Const Other: Appearance: Alert.? Oriented X3.? No acute distress.? Neck: Normal inspection.? Neck supple.? CVS: Normal heart rate and rhythm.? Pulses normal.? Respiratory: No respiratory distress.? Breath sounds normal.? Skin: Skin warm and dry.? Normal skin color.?No edema or bruising. Extremities: No lower extremity edema.? No obvious deformity. Full ROM. Back: No midline tenderness, no C-spine tenderness, full range of motion, no CVA tenderness bilaterally Neuro: Oriented X 3.? No motor deficit.? No sensory deficit. CN 2-12 intact A diving judge was present during the physical exam. Psych Attitude: cooperative Thought content: Normal thought content present, suicidality and no homicidality Insight: Fair insight present (Psych) Judgement: Fair judgement present (Psych) Assessment and Plan Assessment & Plan (1) Atrophy of gluteus som muscle: Comment: Patient described weakness while trying to use the StairMaster at the gymnasium. Patient states she had x-ray of the area after the fall, she has agreed to send us the imaging. Will refer patient to physical therapy. Patient can use topical NSAID cream for discomfort. Patient has been educated on side effects of the medication Code(s): M62.58 - Muscle wasting and atrophy, not elsewhere classified, other site Plan: Take your medications as prescribed. If you were prescribed antibiotics today, it is important that you take your medication to their entirety, do not skip any doses, do not finish them early. Follow-up with your primary care provider this week. Return to the emergency department with new or worsening symptoms. Such as fevers, chills, chest pain, shortness of breath, nausea, vomiting, dizziness, headache, vision changes, lethargy In case of emergency call 911 Plan Physical therapy Orders: Orders PT Evaluation and Treatment Today M62.58 - Muscle wasting and atrophy, not elsewhere classified, other site Medications: New diclofenac sodium 1% (Arthritis Pain (diclofenac)) apply to single elbow, wrist or hand; for hand includes palm/fingers/back of hand 2 grams topical QID 100 grams 0RF Coding Level of Care Code Est Pt Level 3 (88975) Diagnoses Atrophy of gluteus som muscle M62.58 Time Spent (min) 25
[2023-10-02 13:02] VITALS: BP 110/64; PULSE 84; O2SAT 99; BMI 29.8
== END 2023-10-02 14:55 | disposition home or self-care (01) ==
PROVIDERS: Visit Provider Nurse Practitioner Primary Care
DX: M62.58 Muscle wasting and atrophy, not elsewhere classified, other site (principal)
CPT/HCPCS: 99213

== ENCOUNTER 2024-01-23 12:33 | Outpatient (AMB) | payer OTHER, SELFPAY ==
[2024-01-23 12:36] VITALS: BP 120/76; PULSE 92; TEMP 36.4; O2SAT 98; BMI 27.9
--- NOTE | 2024-01-23 12:36 | MHC.OFFWIV ---
Intake Vital Signs 01/23/24 12:36 Height 4 ft 11 in Weight 138 lb BMI 27.9 BP 120/76 Blood Pressure Location Lt brachial Position Sitting Pulse 92 Pulse Source Pulse Oximeter Temp 97.5 F Temp Source Temporal Artery Scan Pulse Oximetry (%) 98 Oxygen Delivery Method Room Air Intake Visit Reasons: EP back strain Intake Note: pt is here today for back strain started 1 week ago Patient Tobacco Use Status: Never used Tobacco Allergies No Known Allergies Allergy (Verified 01/23/24 12:38) Do you need a note to return to daycare/school/sports/work: Yes HPI HPI Comments History of Present Illness Details 23 y/o female patient presents to walk in clinic with c/o Back pain x 1 week. 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 Reports pain with any movement. Denies bowel or bladder problems. Denies numbness or tingling. [facility] Medical History Mood disorder Acne vulgaris PCOS (polycystic ovarian syndrome) Social History Housing: Apartment Alcohol intake: never Patient Tobacco Use Status: Never used Tobacco e-Cigarette/Vaping Use: Never Used Second Hand Smoke Exposure: No service: No Current occupational status: employed Current occupation: [employer] Current occupational exposures/hazards: Yes Cognitive needs: No Hearing needs: No Vision needs: No Review of Systems Const All systems reviewed & are unremarkable except as noted in HPI and below Physical Exam Vital Signs: Last Vital Signs Temp 97.5 F 01/23/24 12:36 Pulse 92 01/23/24 12:36 BP 120/76 01/23/24 12:36 Pulse Ox 98 01/23/24 12:36 Oxygen Delivery Method Room Air 01/23/24 12:36 BMI result Body Mass Index 27.9 Const General: comfortable and no acute distress Orientation/consciousness: patient oriented x3 Limitations: behavioral limitations (Speech delayed) Back/Spine/Pelvis Back: back tenderness Thoracic/Lumbar Spine: thoraco-lumbar ROM normal, thoraco-lumbar spasm, thoracic spinal tenderness and lumbar spinal tenderness Neuro General: patient oriented x3, gait normal and moves all extremities Assessment & Plan Assessment & Plan (1) Low back pain: Code(s): M54.50 - Low back pain, unspecified Qualifiers: Chronicity: acute Back pain laterality: midline Sciatica presence: without sciatica Qualified Code(s): M54.50 - Low back pain, unspecified Plan - Rest - Take medications as directed - Pt wanted 12 weeks out of work. Informed Pt that will have to be done by PCP by filling out FMLA forms. Gave patient 2 days off. Medications: New lidocaine 5% leave on most painful area for up to 12 hrs 1 patch topical DAILY 30 ea 0RF PAIN M54.50 - Low back pain, unspecified ibuprofen 800 mg PO Q8H 30 tabs 0RF PAIN M54.50 - Low back pain, unspecified cyclobenzaprine 10 mg PO BEDTIME 10 tabs 0RF SPASM M54.50 - Low back pain, unspecified Coding Level of Care Code Est Pt Level 3 (33651) Diagnoses Acute midline low back pain without sciatica M54.50 Chronicity: acute Back pain laterality: midline Sciatica presence: without sciatica Time Spent (min) 15
== END 2024-01-23 13:52 | disposition home or self-care (01) ==
PROVIDERS: Visit Provider Nurse Practitioner Family
DX: M54.50 Low back pain, unspecified (principal)
CPT/HCPCS: 99213

== ENCOUNTER 2024-12-03 16:06 | Outpatient (AMB) | payer OTHER, SELFPAY ==
--- NOTE | 2024-12-03 16:09 | AM.OFFWIN_ITS ---
Intake Vital Signs 12/03/24 16:10 Weight 118 lb BP 118/74 Blood Pressure Location Lt brachial Position Sitting Pulse 102 H Pulse Source Pulse Oximeter Pulse Oximetry (%) 97 Oxygen Delivery Method Room Air Intake Visit Reasons: EP-?lead poison Intake Note: Patient here for lead testing as a couple of months ago she was told the pipes do give off lead. Patient Tobacco Use Status: Never used Tobacco Allergies No Known Allergies Allergy (Verified 01/23/24 12:38) Do you need a note to return to daycare/school/sports/work: No HPI HPI Comments History of Present Illness Details 24 y/o female patient who presents to [facility] walk in clinic asking for Lead testing. She read on the internet that there was a possibility that the water in her Town that she lives in might be contaminated with Lead. She rents an Apartment, and moved in Sep 2024. She has been consuming Tap water for cooking and drinking. She has not tested the water for Lead yet, but would like to be screened for it. Denies any symptoms at this time. [facility] Medical History (Updated 12/03/24 @ 16:36 by Tawny De NP) Screening for lead exposure Mood disorder Acne vulgaris PCOS (polycystic ovarian syndrome) Social History Housing: Apartment Alcohol intake: never Patient Tobacco Use Status: Never used Tobacco e-Cigarette/Vaping Use: Never Used Second Hand Smoke Exposure: No service: No Current occupational status: employed Current occupation: [employer] Current occupational exposures/hazards: Yes Cognitive needs: No Hearing needs: No Vision needs: No Review of Systems Const All systems reviewed & are unremarkable except as noted in HPI and below Physical Exam Vital Signs: Last Vital Signs Pulse 102 H 12/03/24 16:10 BP 118/74 12/03/24 16:10 Pulse Ox 97 12/03/24 16:10 Oxygen Delivery Method Room Air 12/03/24 16:10 Const General: cooperative, comfortable and no acute distress Orientation/consciousness: patient oriented x3 Neuro General: patient oriented x3, gait normal and moves all extremities Psych Speech and movement: Normal speech and movement present Assessment & Plan Assessment & Plan (1) Screening for lead exposure: Code(s): Z13.88 - Encounter for screening for disorder due to exposure to contaminants Plan: Advised Patient to have Her Apartment management Test the water first for Proof of contamination. Also Advised her to RTC if develops symptoms of Lead Poisoning (such as Nausea/Vomiting/Abdominal pain/Memory changes etc). Coding Level of Care Code New Pt Level 4 (64280) Diagnoses Screening for lead exposure Z13.88 Time Spent (min) 20
[2024-12-03 16:10] VITALS: BP 118/74; PULSE 102; O2SAT 97
--- OUTSIDE RECORDS SUMMARY | 2024-12-03 18:02 | XMS_ITS | Encounter Summary ---
Author Organization [facility] Address [address] [place] [address] Care Team Providers Care Health Unit Supervisor Name Role Phone Karen Damon MD Primary Care Provider Unavail able Iris Scott MD Primary Care Provider Mignon Gregg MD Primary Care Provider Unavaila Jonn Jerome Primary Care Provider [phone] Reason for Visit * Reason Comments E-prescribing Refill Request Encounter Details Date Type Department Care Team (Late st Contact Info) Description 10/22/2012 Refill [facility] [address] [place] [phone] Mariana Ayala DO [address] [place] [address] E-prescribing Refill Request Social History Tobacco Use Types Packs/Day Years Used Date Smoking Tobacco: Never Alcohol Use Standard Drinks/Week Comments Not Asked 0 (1 standard drink = 0.6 oz pur e alcohol) Comments No Sex and Gender Information Value Date Recorded Sex Assigned at Not on file Legal Sex Female 1:40 AM EDT Gender Identity Not on file Sexual Orientation Not on file documented as of this encounter Miscellaneous Notes * Telephone Encounter - Cierra Horvath - 10/23/2012 9:05 AM EST Faxed/E-prescribed medication renewal request(s) for Francy Aguero 12 y.o. female received from pharmacy. Entered this pharmacy as preferred pharmacy for patient. Any special requests or concerns?- none Last OV or CPE related to this medication: 09/23/12 Last visit with PCP: 09/23/2012 Last physical in this specialty: 09/23/2012 Next visit in PCP office: Visit date not found Allergies: Review of patient's allergies indicates no known allergies. Patient Active Problem List Diagnoses ??? Routine health maintenance ??? Persistent central canal syrinx ??? Chiari malformation type I ??? Ceruminosis Pended medication order(s) and sent to provider. documented in this encounter Plan of Treatment Not on file documented as of this encounter Visit Diagnoses Not on filedocumented in this encounter Care Teams Health Unit Supervisor Relationship Specialty Start Date End Date Karen Damon MD PCP - General 03/17/12 11/22/14 Iris Scott MD [address] [place] [id number] PCP - General Pediatrics 11/23/14 08/11/18 Mignon Gregg MD [address] [place] [id number] PCP - General 08/12/18 11/12/24 Jonn Roberts PA [address] [place] [id number] PCP - General 11/13/24 RETAIL WORKER CARE TEAM YELLOW material reprocessing associate 07/09/23 documented as of this encounter
--- OUTSIDE RECORDS SUMMARY | 2024-12-03 18:02 | XMS_ITS | Encounter Summary ---
Author Organization [facility] Address [address] [place] [address] Care Team Providers Care Riding Teacher Name Role Phone Iris Scott MD Primary Care Provider Mignon Gregg MD Primary Care Provider Unavaila Jonn Jerome Primary Care Provider [phone] Encounter Details Date Type Department Care Team (Late st Contact Info) Description 04/26/2017 Orders Only [facility] [address] [place] [phone] Iris Scott MD [address] [place] [address] Social History Tobacco Use Types Packs/Day Years [...] on file documented as of this encounter Progress Notes * Iris Scott MD - 04/27/2017 9:09 AM EDT CALL ANALIA ON CELL AND LET HER KNOW RESULTS ARE NEGATIVE documented in this encounter Plan of Treatment Not on file documented as of this encounter Procedures * Due to [place] state law, this organization might not be sharing negative HIV tests. Procedure Name Priority Date/Time Associated Diagnosis Comments CHLAMYDIA TRACHOMATIS/N. GONORRHOEAE (GC) RNA, TMA (URINE) Routine 04/26/2017 3:20 PM EDT STD (female) documented in this encounter Results * Due to [place] state law, this organization might not be sharing negative HIV tests. * CHLAMYDIA TRACHOMATIS/N. GONORRHOEAE (GC) RNA, TMA (URINE) (04/26/2017 3:20 PM EDT) Chlamydia trachomatis rRNA NOT DETECTED NOT DETECTED [facility] Neisseria Gonorrhoeae rRNA NOT DETECTED NOT DETECTED [facility] COMMENT SEE NOTE [facility] Comment: This test was performed using the APTIMA COMBO2 Assay ([employer] The analytical performance characteristics of this assay, when used to test SurePath specimens have been determined by [employer]. 04/26/2017 3:20 PM EDT 04/26/2017 10:04 PM EDT Narrative Resulting Agency Comment [id number] Iris Scott MD LABORATORY Final Result Performing Organization Address City/State/[facility] Co de Phone Number [facility] [address] [place] [address] documented in this encounter Visit Diagnoses Diagnosis STD (female) Venereal disease, unspecified documented in this encounter Care Teams Riding Teacher Relationship Specialty Start Date End Date Iris Scott MD [address] [place] [id number] PCP - General Pediatrics 11/23/14 08/11/18 Mignon Gregg MD [address] [place] [id number] PCP - General 08/12/18 11/12/24 Jonn Roberts PA [address] [place] [address] PCP - General 11/13/24 RAMP MANAGER CARE TEAM YELLOW visual developer 07/09/23 documented as of this encounter
--- OUTSIDE RECORDS SUMMARY | 2024-12-03 18:02 | XMS_ITS | Encounter Summary ---
Author Organization [facility] Address [address] [place] [address] Care Team Providers Care Economic Specialist Name Role Phone Iris Scott MD Primary Care Provider Mignon Gregg MD Primary Care Provider UnavailJonn Finch Primary Care Provider [phone] Reason for Visit * Reason Comments Unable To Schedule Encounter Details Date Type Department Care Team ([facility] st Contact Info) Description 03/20/2018 Telephone [facility] Magnetic Resonance Imaging [address] [place] [address] Iris Scott MD [address] [place] [address] Unable To Schedule Social History Tobacco Use Types Packs/Day Years Used Date Smoking Tobacco: Never Smokeless Tobacco: Never Alcohol Use Standard Drinks/Week Comments Yes 0 (1 standard drink = 0.6 oz pur e alcohol) occasionally Comments No Sex and Gender Information Value Date Recorded Sex Assigned at Not on file Legal Sex Female 1:40 AM EDT Gender Identity Not on file Sexual Orientation Not on file Occupation Industry Job Start Date Job End Date graduated HS. going to [employer] Not on file Not on file N ot on file documented as of this encounter Miscellaneous Notes * Telephone Encounter - James Red - 03/20/2018 2:38 PM EDT This is to inform you that this patient did not schedule her appointment for a MRI's to evaluate for f/u arnjemima kingari malfotmation .We made 3 telephone attempts to schedule this appointment with herdirectly, including mailing a letter to the patient on 03/20/18. We will remove your order in Epic on 04/27/18 . Please submit a new order if this exam is needed at a future date. Thank you. documented in this encounter Plan of Treatment Not on file documented as of this encounter Visit Diagnoses Not on filedocumented in this encounter Care Teams Economic Specialist Relationship Specialty Start Date End Date Iris Scott MD [address] [place] [id number] PCP - General Pediatrics 11/23/14 08/11/18 Mignon Gregg MD [address] [place] [id number] PCP - General 08/12/18 11/12/24 Jonn Roberts PA [address] [place] [address] PCP - General 11/13/24 UTILITY REPAIRER CARE TEAM YELLOW cloth handler 07/09/23 documented as of this encounter
--- OUTSIDE RECORDS SUMMARY | 2024-12-03 18:02 | XMS_ITS | Encounter Summary ---
Author Organization [facility] Address [address] [place] [address] Care Team Providers Care Retail Cashier Name Role Phone Mignon Gregg MD Primary Care Provider UnavailJonn Finch Primary Care Provider Encounter Details Date Type Department Care Team (Late st Contact Info) Description 12/24/2022 Orders Only [facility] [address] [place] [address] Mignon Gregg MD Social History Tobacco Use Types Packs/Day Years Used Date Smoking Tobacco: Never Smokeless Tobacco: Never Alcohol Use Standard Drinks/Week Comments Yes 0 (1 standard drink = 0.6 oz pur e alcohol) occasionally- twice/year PHQ-2 Answer Date Recorded PHQ-2 Score 0 03/07/2021 Exercise Vital Sign Answer Date Recorde d On average, how many days pe r week do you engage in moderate to strenuous exercise (like a brisk walk)? 0 days 03/07/2021 On average, how many minutes do you engage in exercise at this level? 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 MyChart message sent. * Result Encounter Note - Mignon Gregg MD - 12/24/2022 12:34 PM EDT Labs are all within the normal range. MyChart message sent. documented in this encounter Plan of Treatment Not on file documented as of this encounter Procedures * Due to [place] SideStep law, this organization might not be sharing negative HIV tests. Procedure Name Priority Date/Time Associated Diagnosis Comments QUANTIFERON-TB GOLD Routine 12/24/2022 1 2:44 PM EDT Screening-pulmonary TB THYROID STIMULATING HORMONE (TSH) WITH FREE T4 REFLEX, SERUM Routine 12/24/2022 12:44 PM EDT Abnormal TSH documented in this encounter Results * Due to [place] SideStep law, this organization might not be sharing negative HIV tests. * THYROID STIMULATING HORMONE (TSH) WITH FREE T4 REFLEX, SERUM (12/24/2022 12:44 PM EDT) TSH 2.16 mIU/L [facility] Comment: ?Reference Range ?> or = 20 Years ??0.40-4.50 ? Ranges ?First trimester ?0.26-2.66 ?Second trimester ?? 0.55-2.73 ?Third trimester ?0.43-2.91 12/24/2022 12:4 4 PM EDT 12/24/2022 3:42 PM EDT Narrative Resulting Agency Comment [id number] Mignon Gregg MD LABORATORY Final Result Performing Organization Address City/State/[facility] Co de Phone Number [facility] [address] [place] [address] * QUANTIFERON-TB GOLD (12/24/2022 12:44 PM EDT) [facility] Signature Quantiferon(R)-TB Gold Plus NEGATIVE NEGATIVE [facility] Comment: Negative test result. M. tuberculosis complex infection unlikely. NIL 0.04 IU/mL [facility] MITOGEN-NIL >10.00 IU/mL [facility] Mycobacterium tuberculosis tuberculin stimulated gamma interferon^correc daniel for background 0.02 IU/mL [facility] TB2-NIL 0.05 IU/mL [facility] Comment: The Nil tube value reflects the background interferon gamma immune response of the patient's blood sample. This value has been subtracted from the patient's displayed TB and Mitogen results. Lower than expected results with the Mitogen tube prevent false-negative Quantiferon readings by detecting a patient with a potential immune suppressive condition and/or suboptimal pre-analytical specimen handling. The TB1 Antigen tube is coated with the M. tuberculosis-specific antigens designed to elicit responses from TB antigen primed CD4+ helper T-lymphocytes. The TB2 Antigen tube is coated with the M. tuberculosis-specific antigens designed to elicit responses from TB antigen primed CD4+ helper and CD8+ cytotoxic T-lymphocytes. For additional information, please refer to [email or web address]/[email or web address] (This link is being provided for informational/ educational purposes only.) 12/24/2022 12:4 4 PM EDT 12/24/2022 3:42 PM EDT Narrative Resulting Agency Comment [id number] Mignon Gregg MD LABORATORY Final Result [facility] [address] [place] [address] documented in this encounter Visit Diagnoses Diagnosis Screening-pulmonary TB Screening examination for pulmonary tuberculosis Abnormal TSH Other abnormal clinical finding documented in this encounter Care Teams Retail Cashier Relationship Specialty Start Date End Date Mignon Gregg MD PCP - General 08/12/18 11/12/24 Jonn Roberts PA [address] [place] [id number] PCP - General 11/13/24 RISK MODELER CARE TEAM YELLOW felt machine mechanic 07/09/23 documented as of this encounter
--- OUTSIDE RECORDS SUMMARY | 2024-12-03 18:02 | XMS_ITS | Encounter Summary ---
Author Organization [facility] Address [address] [place] [address] Care Team Providers Care Time Motion Analyst Name Role Phone Mignon Gregg MD Primary Care Provider UnavailJonn Finch Primary Care Provider Encounter Details Date Type Department Care Team (Late st Contact Info) Description 01/30/2023 Orders Only [facility] [address] [place] [address] Mignon Gregg MD Social History Tobacco Use [...] Encounter Note - Mignon Gregg MD - 01/30/2023 12:27 PM EDT Normal/Stable Iizuut message sent to patient automatically by [employer]treasure[employer] documented in this encounter Plan of Treatment Not on file documented as of this encounter Visit Diagnoses Diagnosis HIV exposure Contact with or exposure to other viral diseases documented in this encounter Care Teams Time Motion Analyst Relationship Specialty Start Date End Date Mignon Gregg MD PCP - General 08/12/18 11/12/24 Jonn Roberts PA [address] [place] [address] PCP - General 11/13/24 RESEARCH PSYCHOLOGIST CARE TEAM REFUGIO hogshead builder 07/09/23 documented as of this encounter
--- OUTSIDE RECORDS SUMMARY | 2024-12-03 18:02 | XMS_ITS | Encounter Summary ---
Author Organization [facility] Address [address] [place] [address] Care Team Providers Care Vacuum Technician Name Role Phone Mignon Gregg MD Primary Care Provider UnavailJonn Finch Primary Care Provider Encounter Details Date Type Department Care Team (Late st Contact Info) Description 04/01/2023 Orders Only [facility] [address] [place] [address] Mignon Gregg MD Social History Tobacco Use [...] on file documented as of this encounter Plan of Treatment Not on file documented as of this encounter Visit Diagnoses Not on filedocumented in this encounter Care Teams Vacuum Technician Relationship Specialty Start Date End Date Mignon Gregg MD PCP - General 08/12/18 11/12/24 Jonn Roberts PA [address] [place] [address] PCP - General 11/13/24 BRAND STRATEGY MANAGER CARE TEAM YELLOW yard hand 07/09/23 documented as of this encounter
--- OUTSIDE RECORDS SUMMARY | 2024-12-03 18:02 | XMS_ITS | Encounter Summary ---
Author Organization [facility] Address [address] [place] [address] Care Team Providers Care Health Safety Coordinator Name Role Phone Iris Scott MD Primary Care Provider Mignon Gregg MD Primary Care Provider Unavaila Jonn Jerome Primary Care Provider [phone] Reason for Visit * Reason Comments E-prescribing Refill Request Encounter Details Date Type Department Care Team (Late st Contact Info) Description 04/30/2018 Refill [facility] [address] [place] [phone] William Good MD [address] [place] [address] E-prescribing Refill Request Social History Tobacco Use [...] Job End Date graduated HS. going to [employer] Not on file Not on file N ot on file documented as of this encounter Miscellaneous Notes * Telephone Encounter - Rochelle Aguayo RN - 05/01/2018 9:40 AM EDT SYED Watson Please advise: Refill request for: Ketoconazole 2% shampoo. Use as shampoo as needed. NOV: none CARLOS: 11/06/12 Dx: seborrheic dermatitis documented in this encounter Plan of Treatment Not on file documented as of this encounter Visit Diagnoses Not on filedocumented in this encounter Care Teams Health Safety Coordinator Relationship Specialty Start Date End Date Iris Scott MD [address] [place] [address] PCP - General Pediatrics 11/23/14 08/11/18 Mignon Gregg MD [address] [place] [address] PCP - General 08/12/18 11/12/24 Jonn Roberts PA [address] [place] [address] PCP - General 11/13/24 RECTIFYING OPERATOR CARE TEAM YELLOW dough mixer helper 07/09/23 documented as of this encounter
--- OUTSIDE RECORDS SUMMARY | 2024-12-03 18:02 | XMS_ITS | Encounter Summary ---
Author Organization [facility] Address [address] [place] [address] Care Team Providers Care Meat Molder Name Role Phone Iris Scott MD Primary Care Provider Mignon Gregg MD Primary Care Provider Unavaila Jonn Jerome Primary Care Provider [phone] Encounter Details Date Type Department Care Team (Late st Contact Info) Description 02/14/2018 Orders Only [facility] [address] [place] [address] Iris Scott MD [address] [place] [address] Social History Tobacco Use Types Packs/Day Years [...] of this encounter Procedures * Due to [place] [employer] law, this organization might not be sharing negative HIV tests. Procedure Name Priority Date/Time Associated Diagnosis Comments CHLAMYDIA TRACHOMATIS/N. GONORRHOEAE (GC) RNA, TMA (URINE) Routine 02/14/2018 5:09 PM EDT Routine history and physical examination of adult documented in this encounter Results * Due to [place] [employer] law, this organization might not be sharing negative HIV tests. * CHLAMYDIA TRACHOMATIS/N. GONORRHOEAE (GC) RNA, TMA (URINE) (02/14/2018 5:09 PM EDT) Chlamydia trachomatis rRNA NOT DETECTED NOT DETECTED [facility] Neisseria Gonorrhoeae rRNA NOT DETECTED NOT DETECTED [facility] COMMENT SEE NOTE [facility] Comment: This test was performed using the APTIMA COMBO2 Assay ([employer] The analytical performance characteristics of this assay, when used to test SurePath specimens have been determined by [employer]. 02/14/2018 5:09 PM EDT 02/14/2018 8:02 PM EDT Narrative Resulting Agency Comment [id number] Iris Scott MD LABORATORY Final Result Performing Organization Address City/State/[facility] Co de Phone Number [facility] [address] [place] [address] documented in this encounter Visit Diagnoses Diagnosis Routine history and physical examination of adult Routine general medical examination at a health care facility documented in this encounter Care Teams Meat Molder Relationship Specialty Start Date End Date Iris Scott MD [address] [place] [address] PCP - General Pediatrics 11/23/14 08/11/18 Mignon Gregg MD [address] [place] [address] PCP - General 08/12/18 11/12/24 Jonn Roberts PA [address] [place] [address] PCP - General 11/13/24 DRYWALL APPLICATION SUPERVISOR CARE TEAM YELLOW psychology professor 07/09/23 documented as of this encounter
--- OUTSIDE RECORDS SUMMARY | 2024-12-03 18:02 | XMS_ITS | Encounter Summary ---
Author Organization [facility] Address [address] [place] [address] Care Team Providers Care Industrial Methods Consultant Name Role Phone Iris Scott MD Primary Care Provider Mingon Gregg MD Primary Care Provider Unavaila Jonn Jerome Primary Care Provider [phone] Encounter Details Date Type Department Care Team (Late st Contact Info) Description 07/05/2017 Orders Only [facility] [address] [place] [phone] Iris Scott MD [address] [place] [address] Social History Tobacco Use Types Packs/Day Years [...] as of this encounter Progress Notes * Shawna Mock NP - 07/08/2017 9:02 AM EDT Negative. See TM 07/08/17 for results follow up. documented in this encounter Plan of Treatment Not on file documented as of this encounter Procedures * Due to [place] state law, this organization might not be sharing negative HIV tests. Procedure Name Priority Date/Time Associated Diagnosis Comments CHLAMYDIA TRACHOMATIS/N. GONORRHOEAE (GC) RNA, TMA (URINE) Routine 07/05/2017 2:28 PM EDT Difficult or painful urination documented in this encounter Results * Due to [place] state law, this organization might not be sharing negative HIV tests. * CHLAMYDIA TRACHOMATIS/N. GONORRHOEAE (GC) RNA, TMA (URINE) (07/05/2017 2:28 PM EDT) Chlamydia trachomatis rRNA NOT DETECTED NOT DETECTED [facility] Neisseria Gonorrhoeae rRNA NOT DETECTED NOT DETECTED [facility] COMMENT SEE NOTE [facility] Comment: This test was performed using the APTIMA COMBO2 Assay ([employer] The analytical performance characteristics of this assay, when used to test SurePath specimens have been determined by [employer]. 07/05/2017 2:28 PM EDT 07/05/2017 6:00 PM EDT Narrative Resulting Agency Comment [id number] Iris Scott MD LABORATORY Final Result Performing Organization Address City/State/[facility] Co de Phone Number [facility] [address] [place] [address] documented in this encounter Visit Diagnoses Diagnosis Difficult or painful urination Dysuria documented in this encounter Care Teams Industrial Methods Consultant Relationship Specialty Start Date End Date Iris Scott MD [address] [place] [address] PCP - General Pediatrics 11/23/14 08/11/18 Mignon Gregg MD [address] [place] [address] PCP - General 08/12/18 11/12/24 Jonn Roberts PA [address] [place] [address] PCP - General 11/13/24 RN UNIT MANAGER CARE TEAM YELLOW frit mixer and burner 07/09/23 documented as of this encounter
--- OUTSIDE RECORDS SUMMARY | 2024-12-03 18:02 | XMS_ITS | Encounter Summary ---
Author Organization [facility] Address [address] [place] [address] Care Team Providers Care Machinist Apprentice Wood Name Role Phone Iris Scott MD Primary Care Provider Mignon Gregg MD Primary Care Provider Unavaila Jonn Jerome Primary Care Provider [phone] Encounter Details Date Type Department Care Team (Late st Contact Info) Description 03/10/2018 Orders Only [facility] [address] [place] [phone] Irene Marin MD [address] [place] [address] Social History Tobacco Use Types Packs/Day Years [...] as of this encounter Progress Notes * Irene Marin MD - 03/11/2018 9:[address] inform pt that test result for STD GC/Chlamydia is negative,pt was worried regarding STD .Urine culture is pending. Kami will be f/u on pt tomorrow documented in this encounter Plan of Treatment Not on file documented as of this encounter Procedures * Due to [place] [employer] law, this organization might not be sharing negative HIV tests. Procedure Name Priority Date/Time Associated Diagnosis Comments CHLAMYDIA TRACHOMATIS/N. GONORRHOEAE (GC) RNA, TMA (URINE) Routine 03/10/2018 4:30 PM EDT Difficult or painful urination Postcoital bleeding CULTURE, URINE, ROUTINE Routine 03/10/2018 4:30 PM EDT Difficult or painful urination Postcoital bleeding documented in this encounter Results * Due to [place] [employer] law, this organization might not be sharing negative HIV tests. * CHLAMYDIA TRACHOMATIS/N. GONORRHOEAE (GC) RNA, TMA (URINE) (03/10/2018 4:30 PM EDT) Chlamydia trachomatis rRNA NOT DETECTED NOT DETECTED [facility] Neisseria Gonorrhoeae rRNA NOT DETECTED NOT DETECTED [facility] COMMENT SEE NOTE [facility] Comment: This test was performed using the APTIMA COMBO2 Assay ([employer] The analytical performance characteristics of this assay, when used to test SurePath specimens have been determined by [employer]. 03/10/2018 4:30 PM EDT 03/10/2018 9:10 PM EDT Narrative Resulting Agency Comment [id number] us Irene Marin MD LABORATORY Final Result Performing Organization Address City/State/[facility] de Phone Number [facility] [address] [place] [address] * (ABNORMAL) CULTURE, URINE, ROUTINE (03/10/2018 4:30 PM EDT) Bacteria culture (Urine) SEE NOTE(A) [facility] Comment: ??CULTURE, URINE, ROUTINE ??MICRO NUMBER: ?[id number] ??TEST STATUS: ? FINAL ??SPECIMEN SOURCE: ?? URINE, CLEAN CATCH ??SPECIMEN QUALITY: ??ADEQUATE ??RESULT: ?10,000-50,000 CFU/mL of Group A Streptococcus isolated ? Beta-hemolytic Streptococci are predictably ? susceptible to penicillin and other beta-lactams. ? Susceptibility testing not routinely performed. ??COMMENT: ? Additional organism(s) less than 10,000 CFU/mL ? isolated. These organisms, commonly found on ? external and internal genitalia, are considered ? colonizers. No further testing performed. 03/10/2018 4:30 PM EDT 03/10/2018 9:10 PM EDT Narrative Resulting Agency Comment [id number] Irene Marin MD LABORATORY Final Result Performing Organization Address City/State/[facility] Co de Phone Number [facility] [address] [place] [address] documented in this encounter Visit Diagnoses Diagnosis Difficult or painful urination Dysuria Postcoital bleeding documented in this encounter Care Teams Machinist Apprentice Wood Relationship Specialty Start Date End Date Iris Scott MD [address] [place] [address] PCP - General Pediatrics 11/23/14 08/11/18 Mignon Gregg MD [address] [place] [address] PCP - General 08/12/18 11/12/24 Jonn Roberts PA [address] [place] [address] PCP - General 11/13/24 SECTION BEAMER CARE TEAM YELLOW menswear salesperson 07/09/23 documented as of this encounter
--- OUTSIDE RECORDS SUMMARY | 2024-12-03 18:02 | XMS_ITS | Patient Health Record ---
Author Organization [facility] Address [address] [place] [address] Care Team Providers Care Damage Prevention Coordinator Name Role Phone Wayne Tejada Primary Care Provider Parth Vaughn Unavailable [phone] Reason For Referral No Information Encounters Encounter Location Date Provider Diagnosis [facility] [place] [address] [place] [phone] 12/25/2023 Parth Das Plan Of Treatment No Information Insurance Providers Payer Name Payer Address Payer Phone Subscriber Number Group Number Insured Name Patient Relationship to Insured Coverage Start Date Coverage End Date [facility] [address] [place] [address] [id number] Francy Aguero Self - patient is the insured
--- OUTSIDE RECORDS SUMMARY | 2024-12-03 18:02 | XMS_ITS | Encounter Summary ---
Author Organization [facility] Address [address] [place] [address] Care Team Providers Care Sand Molder Name Role Phone Mignon Gregg MD Primary Care Provider UnavailJonn Finch Primary Care Provider [phone] Encounter Details Date Type Department Care Team (Late st Contact Info) Description 11/30/2021 Orders Only [facility] [address] [place] [address] Mignon Gregg MD Social History Tobacco Use [...] Encounter Note - Mignon Gregg MD - 11/30/2021 10:32 AM EDT Hopscotch message sent * Result Encounter Note - Mignon Gregg MD - 11/30/2021 10:32 AM EDT MyChart message sent documented in this encounter Plan of Treatment Not on file documented as of this encounter Procedures * Due to [place] [employer] law, this organization might not be sharing negative HIV tests. Procedure Name Priority Date/Time Associated Diagnosis Comments THYROID CASCADING REFLEX Routine 11/30/2021 10:32 AM EDT Screening for thyroid disorder VENIPUNCTURE Routine 11/30/2021 10:32 AM EDT Protrusion of the jaw BASIC METABOLIC PANEL WITH (GFR) Routine 11/30/2021 10:32 AM EDT PCOS (polycystic ovarian syndrome) documented in this encounter Results * Due to [place] [employer] law, this organization might not be sharing negative HIV tests. * THYROID CASCADING REFLEX (11/30/2021 10:32 AM EDT) TSH 1.78 mIU/L [facility] Comment: ?Reference Range ?> or = 20 Years ??0.40-4.50 ? Ranges ?First trimester ?0.26-2.66 ?Second trimester ?? 0.55-2.73 ?Third trimester ?0.43-2.91 11/30/2021 10:3 2 AM EDT 11/30/2021 11:51 PM EDT Narrative Resulting Agency Comment [id number] Mignon Gregg MD LABORATORY Final Result [facility] [address] [place] [address] * BASIC METABOLIC PANEL WITH (GFR) (11/30/2021 10:32 AM EDT) Glucose 79 65 - 99 mg/dL [facility] Comment:Fasting reference in terval Urea Nitrogen Blood (BUN) 8 7 - 25 mg/dL [facility] Creatinine 0.73 0.50 - 1.10 mg/dL [facility] EGFR 117 > OR = 60 mL/min/1. 73m2 [facility] GFR () 135 > OR = 60 mL/min/1. 73m2 [facility] BUN/Creatinine Ratio NOT APPLICABLE 6 - 22 (calc) [facility] Sodium 140 135 - 146 mmol/L [facility] Potassium 4.5 3.5 - 5.3 mmol/L [facility] Chloride 105 98 - 110 mmol/L [facility] Carbon dioxide 27 20 - 32 mmol/L [facility] Calcium 9.6 8.6 - 10.2 mg/dL [facility] 11/30/2021 10:3 2 AM EDT 11/30/2021 11:51 PM EDT Narrative [facility] - 12/01/2021 5:07 AM EDT Please note that this estimated GFR does not include an adjustment for the patient's height or weight, and can therefore, be viewed as reliable only for patients with heights between 60 and 72 . More precise quantification using a 24-hour urine sample or height-based algorithm is recommended for patients outside of this range of height and for those individuals with more precise needs for GFR calculation. Resulting Agency Comment [id number] Mignon Gregg MD LABORATORY Final Result [facility] [address] [place] [address] * INSULIN-LIKE GROWTH FACTOR 1 (IGF-I) (SOMATOMEDIN-C), SERUM (11/30/2021 10:32 AM EDT) IGF-1 (Somatomedin) 220 83 - 456 ng/mL [facility] Z Score (Female) 0.0 -2.0 - 2.0 SD [facility] Comment: This test was developed and its analytical performance characteristics have been determined by [facility] [place]. It has not been cleared or approved by FDA. This assay has been validated pursuant to the CLIA regulations and is used for clinical purposes. 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
--- OUTSIDE RECORDS SUMMARY | 2024-12-03 18:02 | XMS_ITS | Encounter Summary ---
Author Organization [facility] Address [address] [place] [address] Care Team Providers Care Health Information Administrator Name Role Phone Mignon Gregg MD Primary Care Provider UnavailJonn Finch Primary Care Provider Encounter Details Date Type Department Care Team (Late st Contact Info) Description 07/13/2019 Orders Only [facility] [address] [place] [address] Mignon Gregg MD Social History Tobacco Use [...] End Date graduated HS. going to [employer] Not on file Not on file N ot on file documented as of this encounter Progress Notes * Mignon Gregg MD - 07/13/2019 10:57 AM EDT Dear Francy, Jorge Alberto please find your lab test results. Repeated chlamydia test came back negative. Great. If you have questions, please contact my office by replying to this message or calling the office. Sincerely, Mignon Gregg MD documented in this encounter Plan of Treatment Not on file documented as of this encounter Procedures * Due to [place] [employer] law, this organization might not be sharing negative HIV tests. Procedure Name Priority Date/Time Associated Diagnosis Comments CHLAMYDIA TRACHOMATIS/N. GONORRHOEAE (GC) RNA, TMA (URINE) Routine 07/13/2019 10:58 AM EDT Preventive measure documented in this encounter Results * Due to [facility] law, this organization might not be sharing negative HIV tests. * CHLAMYDIA TRACHOMATIS/N. GONORRHOEAE (GC) RNA, TMA (URINE) (07/13/2019 10:58 AM EDT) Chlamydia trachomatis rRNA NOT DETECTED NOT DETECTED [facility] Neisseria Gonorrhoeae rRNA NOT DETECTED NOT DETECTED [facility] COMMENT SEE NOTE [facility] Comment: This test was performed using the APTIMA COMBO2 Assay ([employer] The analytical performance characteristics of this assay, when used to test SurePath specimens have been determined by [employer]. 07/13/2019 10:5 8 AM EDT 07/13/2019 11:40 AM EDT Narrative Resulting Agency Comment [id number] us Mignon Gregg MD LABORATORY Final Result Performing Organization Address City/State/[facility] Co de Phone Number [facility] [address] [place] [address] documented in this encounter Visit Diagnoses Diagnosis Preventive measure Unspecified prophylactic or treatment measure documented in this encounter Care Teams Health Information Administrator Relationship Specialty Start Date End Date Mignon Gregg MD PCP - General 08/12/18 11/12/24 Jonn Roberts PA [address] [place] [address] PCP - General 11/13/24 CHIEF MEDICAL TECHNOLOGIST CARE TEAM YELLOW scout executive 07/09/23 documented as of this encounter
--- OUTSIDE RECORDS SUMMARY | 2024-12-03 18:02 | XMS_ITS | Encounter Summary ---
Author Organization [facility] Address [address] [place] [address] Care Team Providers Care Bleach Supervisor Name Role Phone Iris Scott MD Primary Care Provider Mignon Gregg MD Primary Care Provider Unavaila Jonn Jerome Primary Care Provider [phone] Encounter Details Date Type Department Care Team (Late st Contact Info) Description 01/14/2017 Orders Only [facility] [address] [place] [phone] Iris Scott MD [address] [place] [address] Social History Tobacco Use Types Packs/Day Years [...] Progress Notes * Iris Scott MD - 01/15/2017 2:58 PM EDT Please see notes regarding treatment . tx with zmax Partner notified by her Will come in for more STD testing Discussed condom use with all sexual encounters/ Pt did state she told mom * Irene Marin MD - 01/15/2017 10:45 AM EDT Positive chlamydia see telephone encounter documented in this encounter Plan of Treatment Not on file documented as of this encounter Procedures * Due to [place] Any+Times law, this organization might not be sharing negative HIV tests. Procedure Name Priority Date/Time Associated Diagnosis Comments CHLAMYDIA TRACHOMATIS/N. GONORRHOEAE (GC) RNA, TMA (URINE) Routine 01/14/2017 4:51 PM EDT Encounter for screening for infections with predominantly sexual mode of transmission CBC INCLUDES DIFFERENTIAL AND PLATELET COUNT Routine 01/14/2017 4:51 PM EDT Health check for child over 28 days old LIPID PANEL WITH REFLEX TO DIRECT LDL Routine 01/14/2017 4:51 PM EDT Health check for child over 28 days old documented in this encounter Results * Due to [place] Any+Times law, this organization might not be sharing negative HIV tests. * (ABNORMAL) LIPID PANEL WITH REFLEX TO DIRECT LDL (01/14/2017 4:51 PM EDT) Cholesterol 120(L) 125 - 170 mg/dL [facility] HDL Cholesterol 49 36 - 76 mg/dL [facility] Triglyceride 30(L) 40 - 136 mg/dL [facility] LDL Cholesterol 65 <110 mg/dL (calc) [facility] Comment: Desirable range <100 mg/dL for patients with CHD or diabetes and <70 mg/dL for diabetic patients with known heart disease. CHOL/HDL Ratio 2.4 < OR = 5.0 (calc) [facility] Cholesterol Non-HDL 71 <120 mg/dL (calc) [facility] 01/14/2017 4:51 PM EDT 01/14/2017 9:32 PM EDT Narrative Resulting Agency Comment [id number] Iris Scott MD LABORATORY Final Result [facility] [address] [place] [address] * (ABNORMAL) CBC INCLUDES DIFFERENTIAL AND PLATELET COUNT (01/14/2017 4:51 PM EDT) WBC 9.1 4.5 - 13.0 Thousand/u L [facility] RBC 4.58 3.80 - 5.10 Million/uL [facility] Hemoglobin 13.2 11.5 - 15.3 g/dL [facility] Hematocrit 39.7 34.0 - 46.0 % [facility] MCV 86.7 78.0 - 98.0 fL [facility] MCH 28.9 25.0 - 35.0 pg [facility] MCHC 33.4 31.0 - 36.0 g/dL [facility] RDW 13.1 11.0 - 15.0 % [facility] PLT 314 140 - 400 Thousand/u L [facility] MPV 8.1 7.5 - 12.5 fL [facility] Neutrophils # 5378 1800 - 8000 cells/uL [facility] Lymphocytes # 2384 1200 - 5200 cells/uL [facility] Monocytes # 683 200 - 900 cells/uL [facility] Eosinophils # 564(H) 15 - 500 cells/uL [facility] Basophils # 91 0 - 200 cells/uL [facility] Neutrophils % 59.1 % [facility] Lymphocytes % 26.2 % [facility] Monocytes % 7.5 % [facility] Eosinophils % 6.2 % [facility] Basophils % 1.0 % [facility] 01/14/2017 4:51 PM EDT 01/14/2017 9:32 PM EDT Narrative Resulting Agency Comment [id number] us Irsi Scott MD LAB SAME DAY RESULT Final Resu lt [facility] [address] [place] [address] * (ABNORMAL) CHLAMYDIA TRACHOMATIS/N. GONORRHOEAE (GC) RNA, TMA (URINE) (01/14/2017 4:51 PM EDT) Pathologist [facility] Chlamydia trachomatis rRNA DETECTED(A) NOT DETECTED [facility] Comment: A positive CT or NG Nucleic Acid Amplification Test (NAAT) result should be interpreted in conjunction with other laboratory and clinical data available to the clinician. If clinically indicated, further testing can be performed on the same sample using an alternate molecular target. To order alternate target test use 99665 (C. trachomatis) or 10867 (N. gonorrhoeae). Neisseria Gonorrhoeae rRNA NOT DETECTED NOT DETECTED [facility] COMMENT SEE NOTE [facility] Comment: This test was performed using the APTIMA COMBO2 Assay ([employer] The analytical performance characteristics of this assay, when used to test SurePath specimens have been determined by [facility]. 01/14/2017 4:51 PM EDT 01/14/2017 9:32 PM EDT Narrative Resulting Agency Comment [id number] Iris Scott MD LABORATORY Final Result Performing Organization Address City/State/[facility] Co de Phone Number [facility] [address] [place] [address] documented in this encounter Visit Diagnoses Diagnosis Encounter for screening for infections with predominantly sexual mode of transmission Screening examination for venereal disease Health check for child over 28 days old Routine infant or child health check documented in this encounter Care Teams Bleach Supervisor Relationship Specialty Start Date End Date Iris Scott MD [address] [place] [address] PCP - General Pediatrics 11/23/14 08/11/18 Mignon Gregg MD [address] [place] [address] PCP - General 08/12/18 11/12/24 Jonn Roberts PA [address] [place] [address] PCP - General 11/13/24 SEWAGE RETICULATION DRAFTING OFFICER CARE TEAM YELLOW biomedical repair technician 07/09/23 documented as of this encounter
--- OUTSIDE RECORDS SUMMARY | 2024-12-03 18:02 | XMS_ITS | Encounter Summary ---
Author Organization [facility] Address [address] [place] [address] Care Team Providers Care Qa Tech Name Role Phone Iris Scott MD Primary Care Provider Mignon Gregg MD Primary Care Provider Unavaila Jonn Jerome Primary Care Provider [phone] Encounter Details Date Type Department Care Team (Late st Contact Info) Description 03/06/2017 Orders Only [facility] [address] [place] [phone] Iris Scott MD [address] [place] [address] Social History Tobacco Use Types Packs/Day Years [...] Progress Notes * Iris Scott MD - 03/07/2017 9:16 PM EDT Pt aware documented in this encounter Plan of Treatment Scheduled Orders Name Type Priority Associated Diagnoses Orde r Schedule BV/VAGINITIS PANELDNA PROBE Lab Routine Discharge from the vagina Expected: 03/06/2017 (Approximate), Expires: 03/06/2018 documented as of this encounter Procedures * Due to [place] Phagenesis law, this organization might not be sharing negative HIV tests. Procedure Name Priority Date/Time Associated Diagnosis Comments CHLAMYDIA TRACHOMATIS/N. GONORRHOEAE (GC) RNA, TMA (APTIMA GENITAL SWAB) Routine 03/06/2017 2:02 PM EDT Discharge from the vagina BV/VAGINITIS PANELDNA PROBE(AFFIRM) Routine 03/06/2017 2:02 PM EDT Discharge from the vagina documented in this encounter Results * Due to [place] Phagenesis law, this organization might not be sharing negative HIV tests. * BV/VAGINITIS PANELDNA PROBE (03/06/2017 2:02 PM EDT) Trichomonas vaginalis rRNA (Genital) NOT DETECTED NOT DETECTED [facility] Gardnerella vaginalis rRNA (Genital) NOT DETECTED NOT DETECTED [facility] Deann sp rRNA (Vag) NOT DETECTED NOT DETECTED [facility] 03/06/2017 2:02 PM EDT 03/06/2017 5:50 PM EDT Narrative Resulting Agency Comment [id number] Iris Scott MD LABORATORY Final Result Performing Organization Address [facility] Co de Phone Number [facility] [address] [place] [address] * CHLAMYDIA TRACHOMATIS/N. GONORRHOEAE (GC) RNA, TMA (APTIMA GENITAL SWAB) (03/06/2017 2:02 PM EDT) Chlamydia trachomatis rRNA NOT DETECTED NOT DETECTED [facility] Neisseria Gonorrhoeae rRNA NOT DETECTED NOT DETECTED [facility] COMMENT SEE NOTE [facility] Comment: This test was performed using the APTIMA COMBO2 Assay ([employer] The analytical performance characteristics of this assay, when used to test SurePath specimens have been determined by [facility]. 03/06/2017 2:02 PM EDT 03/06/2017 5:50 PM EDT Narrative Resulting Agency Comment [id number] Iris Scott MD LABORATORY Final Result Performing Organization Address City/[facility] Co de Phone Number [facility] [address] [place] [address] documented in this encounter Visit Diagnoses Diagnosis Discharge from the vagina Leukorrhea, not specified as infective documented in this encounter Care Teams Qa Tech Relationship Specialty Start Date End Date Iris Scott MD [address] [place] [address] PCP - General Pediatrics 11/23/14 08/11/18 Mignon Gregg MD [address] [place] [address] PCP - General 08/12/18 11/12/24 Jonn Roberts PA [address] [place] [address] PCP - General 11/13/24 CONVEYOR BELT OPERATOR CARE TEAM REFUGIO relay checker 07/09/23 documented as of this encounter
--- OUTSIDE RECORDS SUMMARY | 2024-12-03 18:02 | XMS_ITS ---
Author Organization [facility] Address [address] [place] [phone] Care Team Providers Care Draw Off Worker Name Role Phone Wayne Tejada Primary Care Provider Parth Vaughn Unavailable [phone] Encounters Encounter Location Date [facility] [address] [phone] 01/02/2024 Parth Das Plan Of Treatment No Information Progress Notes * SANDIPFrancy NIELSONDOB:2000 ( 24 yo F)Acc No.[id number]:01/02/2024 Progress Notes Patient:?Francy GOETZ Provider:?Parth Das DPM :2000???Age:23 Y???Sex:Female D ate:01/02/2024 Address:[address] [place], [place] [id number] Pcp:Wayne Tejada Subjective: * Chief Complaints: * ??? * Medical History:? Objective: * Vitals:? Assessment: Plan: * Treatment: * Images: * The named appointment provid er may or may not be the originator of this progress note, and it is not deemed complete until electronically signed by the appointment provider. Sign off status: Pending * Provider:?Parth Das DPM Date:?2023 Generated for Jesu lopez/Tracey/Edensmitting on:?12/03/2024 06:02 PM EDT
--- OUTSIDE RECORDS SUMMARY | 2024-12-03 18:02 | XMS_ITS | Encounter Summary ---
Author Organization [facility] Address [address] [place] [address] Care Team Providers Care Managed Care Liaison Name Role Phone Mignon Grgeg MD Primary Care Provider UnavailJonn Finch Primary Care Provider Encounter Details Date Type Department Care Team (Late st Contact Info) Description 09/05/2023 Orders Only [facility] [address] [place] [address] Mignon Gregg MD Social History Tobacco Use Types Packs/Day Years Used Date Smoking Tobacco: Never Smokeless Tobacco: Never Alcohol Use Standard Drinks/Week Comments Yes 0 (1 standard drink = 0.6 oz pur e alcohol) occasionally- twice/year PHQ-2 Answer Date Recorded PHQ-2 Score 0 08/16/2023 Exercise Vital Sign Answer Date Recorde d On average, how many days pe r week do you engage in moderate to strenuous exercise (like a brisk walk)? 0 days 03/07/2021 On average, how many minutes do you engage in exercise at this level? Not asked 03/07/2021 Intimate Partner Violence Answer Date R ecorded Fear of Current or Ex-Partner Not on file Emotionally Abused Not on file 05/07/2023 Physically Abused Not on file 05/07/2023 Sexually Abused Not on file 05/07/2023 Feel Safe at Home Not on file 05/07/2023 Comments No Sex and Gender Information Value [...] Encounter Note - Mignon Gregg MD - 09/05/2023 10:59 AM EST Normal/Stable [employer] message sent to patient automatically by [employer] documented in this encounter Plan of Treatment Not on file documented as of this encounter Visit Diagnoses Diagnosis HIV exposure Contact with or exposure to other viral diseases documented in this encounter Care Teams Managed Care Liaison Relationship Specialty Start Date End Date Mignon Gregg MD PCP - General 08/12/18 11/12/24 Jonn Roberts PA [address] [place] [address] PCP - General 11/13/24 FIELD PROPERTY LOSS SPECIALIST CARE TEAM YELLOW respiratory therapy instructor 07/09/23 documented as of this encounter
--- OUTSIDE RECORDS SUMMARY | 2024-12-03 18:02 | XMS_ITS ---
Author Organization [facility] Address [address] [place] [phone] Care Team Providers Care Air Intelligence Specialist Name Role Phone Wayne Tejada Primary Care Provider Parth Vaughn Unavailable [phone] REASON FOR VISIT Cx 01/02/24 TERRITORY OUTSIDE SALES MANAGER appt Encounters Encounter Location Date [facility] [address] [place] [phone] 12/25/2023 Parth Das Plan Of Treatment No Information Progress Notes * Francy GOETZDOB:2000 ( 23 yo F)Acc No.[id number]:12/25/2023 Patient:?Francy Goetz :2000???Age:23 Y???Sex:Female Address:[address] [place] [address] * true * Date:? Generated for Jesu lopez/Tracey/eTransmitting on:?12/03/2024 06:02 PM EDT
--- OUTSIDE RECORDS SUMMARY | 2024-12-03 18:02 | XMS_ITS | Encounter Summary ---
Author Organization [facility] Address [address] [place] [address] Care Team Providers Care Choke Setter Name Role Phone Karen Damon MD Primary Care Provider Unavail able Iris Scott MD Primary Care Provider Mignon Gregg MD Primary Care Provider Unavaila Jonn Jerome Primary Care Provider Encounter Details Date Type Department Care Team (Late st Contact Info) Description 04/08/2012 Orders Only [facility] [address] [place] [phone] Karen Damon MD Social History Tobacco Use Types Packs/Day Years Used Date Smoking Tobacco: Never Assessed Comments No Sex and Gender Information Value [...] Procedure Name Priority Date/Time Associated Diagnosis Comments CBC INCLUDES DIFFERENTIAL AND PLATELET COUNT Routine 04/08/2012 2:52 PM EDT Secondary amenorrhea HCG, TOTAL, QL Routine 04/08/2012 2:52 PM EDT Secondary amenorrhea TSH, 3RD GENERATION Routine 04/08/2012 2 :52 PM EDT Secondary amenorrhea T4 (THYROXINE), TOTAL, SERUM Routine 04/08/2012 2:52 PM EDT Secondary amenorrhea PROLACTIN Routine 04/08/2012 2:52 PM EDT Secondary amenorrhea documented in this encounter Results * Due to [place] state law, this organization might not be sharing negative HIV tests. * T4 (THYROXINE), TOTAL, SERUM (04/08/2012 2:52 PM EDT) Thyroxine (T4) 7.3 4.5 - 12.0 mcg/dL [facility] Comment:{T4 (THYROXINE), TOT AL {[id number]) 04/08/2012 2:52 PM EDT 04/08/2012 9:44 PM EDT Narrative Resulting Agency Comment [id number] Karen Damon MD LABORATORY Final Result Performing Organization Address [facility] de Phone Number [facility] [address] [place] [address] * TSH, 3RD GENERATION (04/08/2012 2:52 PM EDT) TSH 0.96 mIU/L [facility] Comment: {TSH {[id number]) ? Reference Range ? 1-19 Years 0.50-4.30 ? Ranges ? First trimester ?? 0.26-2.66 ? Second trimester ??0.55-2.73 ? Third trimester ?? 0.43-2.91 04/08/2012 2:52 PM EDT 04/08/2012 9:44 PM EDT Narrative Resulting Agency Comment [id number] Karen Damon MD LABORATORY Final Result Performing Organization Address [facility] de Phone Number [facility] [address] [place] [address] * PROLACTIN (04/08/2012 2:52 PM EDT) Pathologist [facility] Prolactin 7.7 ng/mL [facility] Comment: {PROLACTIN {[id number]) ? Stages of Puberty ([place] Stages) ?Female Observed ? Male Observed ?Range (ng/mL) ? Range (ng/mL) Stage I: ?3.6 - 12.0 ?< OR = 10.0 Stage II - III: ? 2.6 - 18.0 ?< OR = 6.1 Stage IV - V: ? 3.2 - 20.0 ?2.8 - 11.0 04/08/2012 2:52 PM EDT 04/08/2012 9:44 PM EDT Narrative Resulting Agency Comment [id number] Karen Damon MD LAB SAME DAY RESULT Final Resu lt [facility] [address] [place] [address] * (ABNORMAL) CBC INCLUDES DIFFERENTIAL AND PLATELET COUNT (04/08/2012 2:52 PM EDT) Pathologist [facility] WBC 4.3(L) 4.5 - 13.5 Thousand/u L [facility] Comment:{WHITE BLOOD CELL CO UNT {[id number]) RBC 4.45 4.00 - 5.20 Million/uL [facility] Comment:{RED BLOOD CELL COUN T {[id number]) Hemoglobin 13.4 11.5 - 15.5 g/dL [facility] Comment:{HEMOGLOBIN {[id number]) Hematocrit 39.3 35.0 - 45.0 % [facility] Comment:{HEMATOCRIT {[id number]) MCV 88.3 77.0 - 95.0 fL [facility] Comment:{MCV {[id number]) MCH 30.1 25.0 - 33.0 pg [facility] Comment:{MCH {[id number]) MCHC 34.1 31.0 - 36.0 g/dL [facility] Comment:{MCHC {[id number]) RDW 13.3 11.0 - 15.0 % [facility] Comment:{RDW {[id number]) PLT 261 140 - 400 Thousand/u L [facility] Comment:{PLATELET COUNT {[id number]) MPV 9.3 7.5 - 11.5 fL [facility] Comment:{MPV {[id number]) Neutrophils # 1948 1500 - 8000 cells/uL [facility] Comment:{ABSOLUTE NEUTROPHIL S {[id number]) Lymphocytes # 1918 1500 - 6500 cells/uL [facility] Comment:{ABSOLUTE LYMPHOCYTE S {[id number]) Monocytes # 318 200 - 900 cells/uL [facility] Comment:{ABSOLUTE MONOCYTES {[id number]) Eosinophils # 95 15 - 500 cells/uL [facility] Comment:{ABSOLUTE EOSINOPHIL S {[id number]) Basophils # 22 0 - 200 cells/uL [facility] Comment:{ABSOLUTE BASOPHILS {[id number]) Neutrophils % 45.3 % [facility] Comment:{NEUTROPHILS {[id number]) Lymphocytes % 44.6 % [facility] Comment:{LYMPHOCYTES {[id number]) Monocytes % 7.4 % [facility] Comment:{MONOCYTES {[id number]) Eosinophils % 2.2 % [facility] Comment:{EOSINOPHILS {[id number]) Basophils % 0.5 % [facility] Comment:{BASOPHILS {[id number]) 04/08/2012 2:52 PM EDT 04/08/2012 9:44 PM EDT Narrative Resulting Agency Comment [id number] Karen Damon MD LAB SAME DAY RESULT Final Resu lt [facility] [address] [place] [address] * HCG, TOTAL, QL (04/08/2012 2:52 PM EDT) HCG, Qualitative (Screen) NEGATIVE [facility] Comment: {HCG, TOTAL, QL {[id number]) Reference Range Non-: Negative : ? Positive 04/08/2012 2:52 PM EDT 04/08/2012 9:44 PM EDT Narrative Resulting Agency Comment [id number] us Karen Damon MD LAB SAME DAY RESULT Final Resu lt Performing Organization Address City/[facility]/ZIP Co de Phone Number [facility] [address] [place] [address] documented in this encounter Visit Diagnoses Diagnosis Secondary amenorrhea Absence of menstruation documented in this encounter Care Teams Choke Setter Relationship Specialty Start Date End Date Karen Damon MD PCP - General 03/17/12 11/22/14 Iris Scott MD [address] [place] [address] PCP - General Pediatrics 11/23/14 08/11/18 Mignon Gregg MD [address] [place] [address] PCP - General 08/12/18 11/12/24 Jonn Roberts PA [address] [place] [address] PCP - General 11/13/24 [employer] [employer] [facility] TEAM YELLOW termite exterminator helper 07/09/23 documented as of this encounter
--- OUTSIDE RECORDS SUMMARY | 2024-12-03 18:02 | XMS_ITS | Encounter Summary ---
Author Organization [facility] Address [address] [place] [address] Care Team Providers Care Rail Car Unloader Name Role Phone Iris Scott MD Primary Care Provider Mignon Gregg MD Primary Care Provider Unavaila Jonn Jerome Primary Care Provider [phone] Encounter Details Date Type Department Care Team (Late st Contact Info) Description 01/16/2017 Orders Only [facility] [address] [place] [phone] Irene Marin MD [address] [place] [address] Social History Tobacco Use Types Packs/Day Years [...] Progress Notes * Irene Marin MD - 01/17/2017 11:59 AM EDT Negative HIV/Hep C and Test for syphillis,pl inform pt documented in this encounter Plan of Treatment Not on file documented as of this encounter Procedures * Due to [place] state law, this organization might not be sharing negative HIV tests. Procedure Name Priority Date/Time Associated Diagnosis Comments HEPATITIS C AB WITH REFLEX TO RNA PCR, SERUM Routine 01/16/2017 8:21 AM EDT Chlamydia infection RPR, (RAPID PLASMIN REAGIN) WITH REFLEX TO FTA, DIAGNOSTIC Routine 01/16/2017 8:21 AM EDT Chlamydia infection documented in this encounter Results * Due to [place] state law, this organization might not be sharing negative HIV tests. * RPR, (RAPID PLASMIN REAGIN) WITH REFLEX TO FTA, DIAGNOSTIC (01/16/2017 8:21 AM EDT) Reagin Ab NON-REACTI VE NON-REACTI VE [facility] 01/16/2017 8:21 AM EDT 01/16/2017 12:45 PM EDT Narrative Resulting Agency Comment [id number] Iris Scott MD LABORATORY Final Result [facility] [address] [place] [address] * HEPATITIS C AB WITH REFLEX TO RNA PCR, SERUM (01/16/2017 8:21 AM EDT) Hepatitis C virus Ab NON-REACTI VE NON-REACT EUNICE [facility] Hepatitis C virus Ab Signal/Cutoff 0.01 <1.00 [facility] 01/16/2017 8:21 AM EDT 01/16/2017 12:45 PM EDT Narrative Resulting Agency Comment [id number] Iris Scott MD LABORATORY Final Result [facility] [address] [place] [address] documented in this encounter Visit Diagnoses Diagnosis Chlamydia infection Unspecified chlamydial infection, in conditions classified elsewhere and of unspecified site documented in this encounter Care Teams Rail Car Unloader Relationship Specialty Start Date End Date Iris Scott MD [address] [place] [address] PCP - General Pediatrics 11/23/14 08/11/18 Mignon Gregg MD [address] [place] [address] PCP - General 08/12/18 11/12/24 Jonn Roberts PA [address] [place] [address] PCP - General 11/13/24 FACILITIES ENGINEER CARE TEAM YELLOW leach tank tender 07/09/23 documented as of this encounter
--- OUTSIDE RECORDS SUMMARY | 2024-12-03 18:03 | XMS_ITS | Encounter Summary ---
Author Organization [facility] Address [address] [place] [address] Care Team Providers Care Fabric And Accessories Estimator Name Role Phone Mignon Gregg MD Primary Care Provider UnavailJonn Finch Primary Care Provider Encounter Details Date Type Department Care Team (Late st Contact Info) Description 11/11/2018 Orders Only [facility] [address] [place] [address] Mignon Gregg MD Social History Tobacco Use [...] End Date graduated HS. going to [employer] Not on file Not on file N ot on file documented as of this encounter Progress Notes * Mignon Gregg MD - 11/12/2018 11:50 AM EST Francy, Jorge Alberto please find your lab test results. Chlamydia screening test came back negative. Mignon Gregg MD * Mignon Gregg MD - 11/12/2018 8:30 AM EST Francy, Jorge Alberto please find your lab test results. Vitamin D level is slightly low. You may start to take over the counter vit D supplement 1000 iu per day. Thyroid function is in normal range. Vitamin B12 is in normal range. That is great. Blood level is normal and your kidney function is normal. Mignon Gregg MD documented in this encounter Plan of Treatment Not on file documented as of this encounter Procedures * Due to [place] [employer] law, this organization might not be sharing negative HIV tests. Procedure Name Priority Date/Time Associated Diagnosis Comments CHLAMYDIA TRACHOMATIS/N. GONORRHOEAE (GC) RNA, TMA (URINE) Routine 11/11/2018 4:23 PM EST Preventive measure CBC INCLUDES DIFFERENTIAL AND PLATELET COUNT Routine 11/11/2018 4:23 PM EST Preventive measure THYROID STIMULATING HORMONE (TSH) WITH FREE T4 REFLEX, SERUM Routine 11/11/2018 4:23 PM EST Memory difficulty VITAMIN B12 (CYANOCOBALAMIN), SERUM Routine 11/11/2018 4:23 PM EST Memory difficulty VITAMIN D, 25-HYDROXY, TOTAL, IMMUNOASSAY Routine 11/11/2018 4:23 PM EST Preventive measure BASIC METABOLIC PANEL WITH (GFR) Routine 11/11/2018 4:23 PM EST Preventive measure documented in this encounter Results * Due to [place] [employer] law, this organization might not be sharing negative HIV tests. * CHLAMYDIA TRACHOMATIS/N. GONORRHOEAE (GC) RNA, TMA (URINE) (11/11/2018 4:23 PM EST) Chlamydia trachomatis rRNA NOT DETECTED NOT DETECTED [facility] Neisseria Gonorrhoeae rRNA NOT DETECTED NOT DETECTED [facility] COMMENT SEE NOTE [facility] Comment: This test was performed using the APTIMA COMBO2 Assay ([employer] The analytical performance characteristics of this assay, when used to test SurePath specimens have been determined by [facility]. 11/11/2018 4:23 PM EST 11/12/2018 2:22 AM EST Narrative Resulting Agency Comment [id number] Mignon Gregg MD LABORATORY Final Result [facility] [address] [place] [address] * THYROID STIMULATING HORMONE (TSH) WITH FREE T4 REFLEX, SERUM (11/11/2018 4:23 PM EST) Pathologist [facility] TSH 1.21 mIU/L [facility] Comment: ? Reference Range ? 1-19 Years 0.50-4.30 ? Ranges ? First trimester ?? 0.26-2.66 ? Second trimester ??0.55-2.73 ? Third trimester ?? 0.43-2.91 11/11/2018 4:23 PM EST 11/12/2018 2:22 AM EST Narrative Resulting Agency Comment [id number] Mignon Gregg MD LABORATORY Final Result [facility] [address] [place] [address] * (ABNORMAL) VITAMIN D, 25-HYDROXY, TOTAL, IMMUNOASSAY (11/11/2018 4:23 PM EST) Pathologist [facility] Vitamin D, 25-OH, Total 28(L) 30 - 100 ng/mL [facility] Comment: Vitamin D Status ? 25-OH Vitamin D: Deficiency: ?<20 ng/mL Insufficiency: ? 20 - 29 ng/mL Optimal: ? > or = 30 ng/mL For 25-OH Vitamin D testing on patients on D2-supplementation and patients for whom quantitation of D2 and D3 fractions is required, the QuestAssureD(TM) 25-OH VIT D, (D2,D3), LC/MS/MS is recommended: order code 84457 (patients >2yrs). For more information on this test, go to: http://education.[employer].RESAAS/faq/HQQ474 (This link is being provided for informational/educational purposes only.) 11/11/2018 4:23 PM EST 11/12/2018 2:22 AM EST Narrative Resulting Agency Comment [id number] Mignon Gregg MD LABORATORY Final Result Performing Organization Address [facility] de Phone Number [facility] [address] [place] [address] * VITAMIN B12 (CYANOCOBALAMIN), SERUM (11/11/2018 4:23 PM EST) Vitamin B12 (Cobalamins) 813 200 - 1100 pg/mL [facility] 11/11/2018 4:23 PM EST 11/12/2018 2:22 AM EST Narrative Resulting Agency Comment [id number] Mignon Gregg MD LABORATORY Final Result Performing Organization Address [facility] de Phone Number [facility] [address] [place] [address] * BASIC METABOLIC PANEL WITH (GFR) (11/11/2018 4:23 PM EST) Glucose 83 65 - 99 mg/dL [facility] Comment:Fasting reference in terval Urea Nitrogen Blood (BUN) 8 7 - 20 mg/dL [facility] Creatinine 0.65 0.50 - 1.00 mg/dL [facility] EGFR 129 > OR = 60 mL/min/1. 73m2 [facility] GFR () 149 > OR = 60 mL/min/1. 73m2 [facility] BUN/Creatinine Ratio NOT APPLICABLE 6 - 22 (calc) [facility] Sodium 138 135 - 146 mmol/L [facility] Potassium 4.3 3.8 - 5.1 mmol/L [facility] Chloride 104 98 - 110 mmol/L [facility] Carbon dioxide 27 20 - 32 mmol/L [facility] Calcium 9.1 8.9 - 10.4 mg/dL [facility] 11/11/2018 4:23 PM EST 11/12/2018 2:22 AM EST Narrative [facility] - 11/12/2018 5:05 AM EST Please note that this estimated GFR does [...] needs for GFR calculation. Resulting Agency Comment [id number] Mignon Gregg MD LABORATORY Final Result Performing Organization Address [facility] de Phone Number [facility] [address] [place] [address] * CBC INCLUDES DIFFERENTIAL AND PLATELET COUNT (11/11/2018 4:23 PM EST) WBC 8.0 3.8 - 10.8 Thousand/u L [facility] RBC 4.42 3.80 - 5.10 Million/uL [facility] Hemoglobin 13.2 11.7 - 15.5 g/dL [facility] Hematocrit 39.4 35.0 - 45.0 % [facility] MCV 89.1 80.0 - 100.0 fL [facility] MCH 29.9 27.0 - 33.0 pg [facility] MCHC 33.5 32.0 - 36.0 g/dL [facility] RDW 12.2 11.0 - 15.0 % [facility] PLT 312 140 - 400 Thousand/u L [facility] MPV 9.6 7.5 - 12.5 fL [facility] Neutrophils # 4808 1500 - 7800 cells/uL [facility] Lymphocytes # 2168 850 - 3900 cells/uL [facility] Monocytes # 480 200 - 950 cells/uL [facility] Eosinophils # 432 15 - 500 cells/uL [facility] Basophils # 112 0 - 200 cells/uL [facility] Neutrophils % 60.1 % [facility] Lymphocytes % 27.1 % [facility] Monocytes % 6.0 % [facility] Eosinophils % 5.4 % [facility] Basophils % 1.4 % [facility] 11/11/2018 4:23 PM EST 11/12/2018 2:22 AM EST Narrative Resulting Agency Comment [id number] Mignon Gregg MD LAB SAME DAY RESULT Final Resul t Performing Organization Address [facility] Co de Phone Number [facility] [address] [place] [address] documented in this encounter Visit Diagnoses Diagnosis Preventive measure Unspecified prophylactic or treatment measure Memory difficulty Memory loss documented in this encounter Care Teams Fabric And Accessories Estimator Relationship Specialty Start Date End Date Mignon Gregg MD PCP - General 08/12/18 11/12/24 Jonn Roberts PA [address] [place] [address] PCP - General 11/13/24 HEATING EQUIPMENT REPAIRER CARE TEAM YELLOW pad assembler 07/09/23 documented as of this encounter
--- OUTSIDE RECORDS SUMMARY | 2024-12-03 18:03 | XMS_ITS | Encounter Summary ---
Author Organization [facility] Address [address] [place] [address] Care Team Providers Care K9 Handler Name Role Phone Mignon Gregg MD Primary Care Provider Unavaila ble Reason for Visit * Reason Comments Back Pain Encounter Details Date Type Department Care Team (Late st Contact Info) Description 11/04/2024 Telephone [facility] [address] [place] [phone] Mignon Gregg MD Back Pain Social History Tobacco Use Types Packs/Day Years [...] encounter Miscellaneous Notes * Telephone Encounter - Jessica Albrecht RN - 11/04/2024 9:03 AM EST Plan/Disposition: Future Appointments Date Time Provider Department Phone 11/05/24 1:30 PM Rosemarie Ojeda NP [facility] [phone] 11/26/24 2:15 PM Jose Moran MD [facility] [phone] Pt requested date and time. Disease Management Program Membership: None Chief complaint: Patient, Francy Aguero female 24 y.o. calling with complaint of back pain. Startedcall off stating I need an ultrasound or scan to find out what is going on, so I can get help for this pain. Onset: 2 day(s) ago . Emergent/Urgent symptoms: patient denies any emergent symptoms such as loss of bladder/bowel control, weakness in legs, difficulty ambulating, numbness/tingling Location: thoracic and lumbar Intensity: pain scale (0-10)- 10 - was speaking strongly and calmly. Pain character: continuous and sharp Associated symptoms/ROS: full mid back and left upper back. Precipitating event: bending and had muscle and tendon strain in back a year ago. LMP: Patient denies any chance of Pertinent History: hx of back pain Allergies: Patient has no known allergies. Current home TX: home exercises Effectiveness of home TX: N/A Pt denies: new injury, radiating pain, numbness, tingling. * Telephone Encounter - Jennifer Pérez - 11/04/2024 9:01 AM EST Reason for call: whole back strain. Patient would like to be seen MARIANA. How long have you had these symptoms? Happened last year but she never had the time before to get it checked out, and now the pain is back. Is the patient having an emergent symptom? No Follow-up action needed: call transferred to Nurse queue documented in this encounter Plan of Treatment Not on file documented as of this encounter Visit Diagnoses Not on filedocumented in this encounter Care Teams K9 Handler Relationship Specialty Start Date End Date Mignon Gregg MD PCP - General 08/12/18 11/12/24 CATTLE SHIPPER CARE TEAM YELLOW vp 07/09/23 documented as of this encounter
--- OUTSIDE RECORDS SUMMARY | 2024-12-03 18:03 | XMS_ITS | Encounter Summary ---
Author Organization [facility] Address [address] [place] [address] Care Team Providers Care Material Yard Clerk Name Role Phone Mignon Gregg MD Primary Care Provider Jonn Shelton Primary Care Provider [phone] Reason for Visit * Reason Comments Patient Questions Encounter Details Date Type Department Care Team ([facility] st Contact Info) Description 11/11/2024 Telephone [facility] [address] [place] [phone] Mignon Gregg MD Patient Questions Social History Tobacco Use Types Packs/Day Years [...] encounter Miscellaneous Notes * Telephone Encounter - Padmini Hou LPN - 11/13/2024 9:04 AM EST MCM sent * Telephone Encounter - Padmini Hou LPN - 11/13/2024 9:03 AM EST Call to patient, mail box full * Telephone Encounter - Mignon Gregg MD - 11/12/2024 5:32 PM EST I will suggest OV for evaluation if symptom gets worse or persistent. * Telephone Encounter - Montse Coe RN - 11/11/2024 1:41 PM EST Patient calling states she has noticed some concerns since having back injury and wanted PCP to be aware. Patient states she has some weakness in her legs and arms that comes and goes. Patient also reports she has some numbness in her legs at times. Patient asking if this is any cause for concern or any recommendations. Patient advised she was referred to PT and ortho & provided with phone number of new PCP. Advised would call back if any recommendations PLEASE ADVISE * Telephone Encounter - Serenity Segal - 11/11/2024 1:39 PM EST Pt states that she has back pain and has noticed side effects from the pain documented in this encounter Plan of Treatment Not on file documented as of this encounter Visit Diagnoses Not on filedocumented in this encounter Care Teams Material Yard Clerk Relationship Specialty Start Date End Date Mignon Gregg MD PCP - General 08/12/18 11/12/24 Jonn Roberts PA [address] [place] [address] PCP - General 11/13/24 CAR RENTAL CLERK CARE TEAM YELLOW aircraft body repairer 07/09/23 documented as of this encounter
--- OUTSIDE RECORDS SUMMARY | 2024-12-03 18:03 | XMS_ITS | Clinical Summary ---
Author Organization [facility] Address [address] [place] [address] Care Team Providers Care Lipcoat Sprayer Name Role Phone Jonn Roberts Primary Care Provider Allergies No known active allergies Medications Amphetamine-Dex troamphetamine (ADDERALL XR) 10 MG 24 hr capsule Take 10 mg by mouth 1 (one) time each day Take with 5 mg pill . 4 Active Tretinoin (RETIN-A) 0.025 % cream Apply topically every night At bedtime to face. 45 g 1 4 Active Spironolactone (ALDACTONE) 100 MG tabletIndicatio ns:PCOS (polycystic ovarian syndrome) Take one tablet (100 mg total) by mouth 1 (one) time each day. 90 tablet 5 02/10/20 25 Active Norethindrone-E th Estradiol (OVCON) 0.4-35 MG-MCG per tabletIndicatio ns:PCOS (polycystic ovarian syndrome) Take one tablet by mouth 1 (one) time each day. 84 tablet 5 01/21/20 26 Active metFORMIN ER (GLUCOPHAGE-XR) 500 MG 24 hr tabletIndicatio ns:Elevated glucose level Take one tablet (500 mg total) by mouth 1 (one) time each day with breakfast AND two tablets (1,000 mg total) 1 (one) time each day with dinner. 270 tablet 1 5 Active Amphetamine-Dex troamphetamine (ADDERALL XR) 20 MG 24 hr capsule Take 20 mg by mouth 1 (one) time each day in the morning TAKE 1 CAPSULE BY MOUTH EVERY MORNING UPON AWAKENING. 5 Active Diclofenac Sodium (VOLTAREN) 75 MG EC tabletIndicatio ns:Acute back pain, unspecified back location, unspecified back pain laterality Take one tablet (75 mg total) by mouth 2 (two) times a day with meals for 14 days. 28 tablet 5 12/20/19 Active Amphetamine-Dex troamphetamine 5 MG Tab TAKE 1 TAB BY MOUTH DAILY IN THE AFTERNOON 0 9 11/05/19 Discontinu ed(Therapy completed) hydrOXYzine Pamoate (VISTARIL) 25 MG capsule Take 25 mg by mouth if needed for anxiety. 3 11/05/19 Discontinu ed(Therapy completed) Risperidone (RisperDAL) 3 MG tablet Take 3 mg by mouth every night at bedtime. 4 11/05/19 Discontinu ed(Therapy completed) Sertraline (ZOLOFT) 50 MG tablet Take 50 mg by mouth 1 (one) time each day. 4 11/05/19 Discontinu ed(Therapy completed) Aripiprazole (ABILIFY) 10 MG tablet Take 30 mg by mouth 1 (one) time each day. 5 11/05/19 Discontinu ed(Therapy completed) Aripiprazole (ABILIFY) 5 MG tablet Take 5 mg by mouth 1 (one) time each day. 11/05/19 Discontinu ed(Therapy completed) Risperidone (RisperDAL) 1 MG tablet Take 1 tablet by mouth 1 (one) time each day. 4 11/05/19 25 Discontinu ed(Therapy completed) Amphetamine-Dex troamphetamine (ADDERALL XR) 15 MG 24 hr capsule Take 1 capsule by mouth 1 (one) time each day. 4 11/05/19 Discontinu ed(Therapy completed) Amphetamine-Dex troamphetamine (ADDERALL) 15 MG tablet Take 15 mg by mouth 1 (one) time each day TAKE 1 TABLET BY MOUTH ONCE DAILY NEEDED IN THE AFTERNOON. 4 11/05/19 25 Discontinu ed(Therapy completed) Amphetamine-Dex troamphetamine (ADDERALL) 10 MG tablet Take 10 mg by mouth 1 (one) time each day TAKE 1 TABLET BY MOUTH ONCE DAILY NEEDED. TAKE IN AFTERNOON NEEDED FOR ATTENTION.. 5 11/05/19 25 Discontinu ed(Elizabeth mcdonald (No Cancel Rx)) Active Problems Problem Noted Date Diagnosed Date Elevated glucose level 01/29/2024 Overview (01/29/2024): 01/29/2024 A1C ordered. Schizophrenia 07/17/2022 Overview (01/29/2024): 07/17/2022 Patient was recently evaluated in emergency room and then admitted to inpatient mental health unit for hallucination, suicidal ideation. Patient's medication has been adjusted. During hospitalization, patient started on risperidone 2 mg daily, she was also given 1 dose IM injection on June 20 discharge date, she was also suggested to start on Seroquel 100 mg daily at bedtime. She is continue following psychiatrist on outpatient basis. With patient oral consent, I was allowed to contact patient's psychiatrist to discuss on her case. As per her psychiatrist Mannie Kidd CNP in [place], patient is recommended to continue with oral risperidone 2 mg daily and Seroquel. She has follow-up appointment schedule in one month with her. Regarding her mental condition, patient denies suicidal ideation and states she is doing much better. I did discussed with her psychiatrist regarding back to work issue. 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 01/29/2024 Stable on risperidone. Continue to follow up with psychiatrist. Fatigue 11/30/2021 Overview (11/30/2021): 11/30/2021: Thyroid cascading reflex ordered. Protrusion of the jaw 11/30/2021 Overview (11/30/2021): 11/30/2021: Pt concerned about possibility of acromegaly. To reassured her, we ordered IGF-1. But I do not feel she has typical acromegaly symptoms. Her sizes of jaw bone, hands, feet, head size looks to me are in normal range. She has weakness, fatigue, abnormal MP which are likely related to multiple factors, such as mood disorder, PCOS. If results are abnormal, will refer to endocrinology. Mood disorder 03/07/2021 Overview (01/29/2024): Hx of depression and anxiety tx in the past with sertraline, did not find it very helpful. States that she would prefer to see a therapist but at the moment that would be very expensive for her due to high co-pays. Patient is practicing mindfulness 11/30/2021: Slight anxious. Continue follow up with psychiatrist. 01/29/2024: Stable. Continue to follow up with psychiatrist. Continue with sertraline and hydroxyzine as needed. History of psychosis 03/07/2021 Overview (03/07/2021): Patient had a recent admission at the psychiatric hospital for a psychotic episode. She is currently not taking any medication. It seems that she was placed on Zyprexa but she did not like the side effect of weight gain and decided not to take it. She is not following up with psychiatrist or therapist. Patient states she has high co-pays and cannot afford. She does have a bit of pressured speech and some paranoid thoughts but no delusions or hallucinations. We will obtain notes from the hospital PCOS (polycystic ovarian syndrome) 10/31/2020 Overview (01/29/2024): Not on tx at the moment. Was on OCP but stopped due to acne being worse 11/30/2021: Continue to follow with HYPO DIPPER. 01/29/2024: Pt is wondering if she can start on metformin to help with her metabolic rate and weight gain from psych mediation Will start metformin 500 mg daily with dinner, Rx sent to the pharmacy. Discussed possible side effects with patient. 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 Chiari malformation type I 04/19/2011 Overview (03/07/2021): Per lock corner machine operator note: diagnosis; followed by pediatric neurosurgery in [place] in the past with several MRI's and stable. Per Mom no further neurosurgery f/u needed. Routine health maintenance 03/23/2011 Resolved Problems Problem Noted Date Diagnosed Date Resolved Date Chlamydia infection 01/15/2017 02/15/20 18 Hair loss 07/14/2015 02/14/2018 Ceruminosis 08/19/2012 02/14/2018 Encounters Date Type Department Care Team Description 12/02/[address] [phone] Jonn Roberts PA Labs/orders 11/24/2024 Telephone [facility] [address] [place] [address] Jonn Roberts PA Abdominal Pain 11/11/[address] [phone] Mignon Gregg MD Patient Questions 11/09/[address] [phone] Mignon Gregg MD Referral Request 11/09/[address] [phone] Mignon Gregg MD Medication Problem 11/05/2024 1:30 PM EST Office Visit [address] [phone] Rosemarie Ojeda NP Acute back pain, unspecified back location, unspecified back pain laterality (Primary Dx); Mood disorder; Schizophrenia; PCOS (polycystic ovarian syndrome); Arnold-Chiari malformation, type I; Persistent central canal syrinx; Major depressive disorder, recurrent episode, in partial remission 11/04/[address] [phone] Mignon Gregg MD Back Pain 10/12/2024 [facility] [place] [phone] Liss Max NP Refill Request 10/12/2024 Refill [facility] [address] [place] [phone] Mignon Gregg MD Refill Request 09/18/2024 Orders Only [facility] [address] [place] [phone] Mignon Gregg MD from Last 3 Months Immunizations Name Administration Dates Next Due Covid-19, Vector-nr (Cool Lumens), 0.5 Ml 05/16/2021 Covid-19, mRNA (Pfizer Pre F all 2022) Monovalent, 30 mcg/0.3 ml constance-sucrose (12+) 03/07/2022 DTaP 04/04/2005, 1,04/04/2000,02/13,1999 HIB (PRP-T) 04/04/2000,02/14/2000,1999 HPV4 (Gardasil 4) 04/08/2012,12/07/2011,09/04/20 11 Hep A 09/23/2012 Hep A (pedi) 09/30/2013 Hep B (pedi) 07/02/2000,1999,1999 IPV 04/04/2005, 0,02/14/2000,12/13 MMR 04/04/2005,11/14/2000 Meningococcal ACWY (Menactra) 10/28/2015, 012 PCV-7 11/14/2000,07/02/2000,04/04/2000 PPD/TST (Tuberculin Skin Test) 05/28/2016,2014 Tdap(Adacel) 04/08/2012 Varicella 06/29/2009,11/14/2000 Family History Medical History Relation Name Comments No Known or Significant Medical History Brother No Known or Significant Medical History Father Edgard Pulmonary Disorder Maternal grandfather s moker/ quit recently Cancer (?Type) Mother Analia Kidney Hypertension Mother Analia Other Other seizures matern al great grandmother Alcohol/Drug Neg Hx Allergies (med/food/envrnmt) Neg Hx Asthma Neg Hx Diabetes Neg Hx Heart Disorder Neg Hx Lipid/Cholesterol Abnormality Neg Hx Psych/Mental Health Neg Hx Relation Name Status Comments Brother Alive Father Edgard Alive Half brother edgard Alive Maternal grandfather Alive Maternal grandmother Alive Mother Analia Alive Other Paternal grandfather Alive Paternal grandmother Alive Social History Tobacco Use Types Packs/Day Years Used Date Smoking Tobacco: Never Smokeless Tobacco: Never Tobacco Cessation:Counseling Given: Not Answered Alcohol Use Standard Drinks/Week Comments Yes 0 [...] file Not on file Not on file Last Filed Vital Signs Vital Sign Reading Time Taken Comments Blood Pressure 104/86 11/05/2024 1:30 PM EST Pulse 113 11/05/2024 1:30 PM EST Temperature 37.2 ??C (98.9 ??F) 11/05/2024 1:30 PM ES T Respiratory Rate 16 03/09/2021 12:53 PM EDT Oxygen Saturation 99% 11/05/2024 1:30 PM EST Inhaled Oxygen Concentration - - Weight 54 kg (119 lb) 11/05/2024 1:30 PM EST Height 149.9 cm (4' 11 ) 11/05/2024 1:30 PM EST Body Mass Index 24.04 11/05/2024 1:30 PM EST Plan of Treatment Health Maintenance Due Date Last Done Comments DTaP/Tdap/Td (7 - Td or Tdap) 04/08/2022 04/08/2012, 04/04/2005, 04/10/2001, Additional history exists Pap Smear 03/07/2024 03/07/2021 COVID-19 Vaccine ( season) 2024 03/07/2022, 05/16/2021 Influenza (#1) 2024 Zoster (Shingrix) (1 of 2) 2049 06/29/2009, Hib Aged Out 04/04/2000, 01/16, 1999 No longer eligible based on patient's age to complete this topic Hep B Completed 07/02/2000, 11/16, 1999 Pneumococcal Aged Out 11/14/2000, 06/16, 04/04/2000 No longer eligible based on patient's age to complete this topic HPV Vaccine Completed 04/08/2012, 11/15, 09/04/2011 Hep A Completed 09/30/2013, 09/23/2012 Meningococcal ACWY Completed 10/28/2015, 04/08/2012 PPD Discontinued 05/28/2016, 08/16/2015 Hepatitis C Screening Completed 01/16/2017 Physical Discontinued 03/07/2021, 10/18, 02/14/2018, Additional history exists EKG Discontinued 10/25/2022, 10/25/2022 LDL Cholesterol Discontinued 01/29/2024, 01/14/2017 Chlamydia Discontinued 09/03/2024, 05/18, 03/07/2022, Additional history exists Procedures * Due to [place] state law, this organization might not be sharing negative HIV tests. Procedure Name Priority Date/Time Associated Diagnosis Comments BASIC METABOLIC PANEL WITH (GFR) Routine 09/18/2024 12:41 PM EST Elevated glucose level CHLAM/GC/TRICH DIAMOND Routine 09/03/2024 6: 13 PM EST LIPID PANEL WITH REFLEX TO DIRECT LDL Routine 01/29/2024 4:30 PM EDT Screening for hyperlipidemia ELECTROCARDIOGRAM, TRACING 10/25/2022 THINPREP TIS PAP REFLEX HPV MRNA E6/E7, CT/NG, TRICH Routine 03/07/2021 1:12 PM EDT Screening for cancer HEPATITIS C AB WITH REFLEX TO RNA PCR, SERUM Routine 01/16/2017 8:21 AM EDT Chlamydia infection from Last 3 Months or Most Recently Relevant to Health Maintenance Results * Due to [place] state law, this organization might not be sharing negative HIV tests. * BASIC METABOLIC PANEL WITH (GFR) (09/18/2024 12:41 PM EST) Glucose 93 65 - 99 mg/dL [facility] Comment:Fasting reference in terval Urea Nitrogen Blood (BUN) 10 7 - 25 mg/dL [facility] Creatinine 0.67 0.50 - 0.96 mg/dL [facility] EGFR 125 > OR = 60 mL/min/1. 73m2 [facility] BUN/Creatinine Ratio SEE NOTE: (calc) [facility] Comment: ?? Not Reported: BUN and Creatinine are within ?? reference range. Sodium 136 135 - 146 mmol/L [facility] Potassium 4.6 3.5 - 5.3 mmol/L [facility] Chloride 103 98 - 110 mmol/L [facility] Carbon dioxide 28 20 - 32 mmol/L [facility] Calcium 9.5 8.6 - 10.2 mg/dL [facility] 09/18/2024 12:4 1 PM EST 09/19/2024 1:44 AM EST Narrative [facility] - 09/19/2024 5:24 AM EST Please note that this estimated [...] needs for GFR calculation. Resulting Agency Comment [id number] us Mignon Gregg MD LABORATORY Final Result [facility] [address] [place] [address] * CHLAM/GC/TRICH DIAMOND (09/03/2024 6:13 PM EST) Chlamydia trachomatis DNA Negative Negative [facility] Neisseria gonorrhoeae DNA Negative Negative [facility] TRICHOMONAS DIAMOND Negative Negative [facility] 09/03/2024 6:13 PM EST Narrative [facility] - 09/04/2024 12:41 PM EST Genprobe Source: Urine Meena Garcia NP LABORATORY Final Result Performing Organization Address [facility]/ZIP Co de Phone Number [facility] [address] [place] [address] * (ABNORMAL) LIPID PANEL WITH REFLEX TO DIRECT LDL (01/29/2024 4:30 PM EDT) Cholesterol 184 <200 mg/dL [facility] HDL Cholesterol 58 > OR = 50 mg/dL [facility] Triglyceride 72 <150 mg/dL [facility] LDL Cholesterol 110(H) mg/dL (calc) [facility] Comment: Reference range: <100 Desirable range <100 mg/dL for primary prevention; ?? <70 mg/dL for patients with CHD or diabetic patients with > or = 2 CHD risk factors. LDL-C is now calculated using the Kaleb-Jonas calculation, which is a validated novel method providing better accuracy than the Friedewald equation in the estimation of LDL-C. Kaleb SS et al. LIDIA. 2013;310(19): 3847-3365 (http://education.Tango Networks.Wolfpack Chassis/faq/XLE814) CHOL/HDL Ratio 3.2 <5.0 (calc) [facility] Cholesterol Non-HDL 126 <130 mg/dL (calc) [facility] Comment: For patients with diabetes plus 1 major ASCVD risk factor, treating to a non-HDL-C goal of <100 mg/dL (LDL-C of <70 mg/dL) is considered a therapeutic option. 01/29/2024 4:3 0 PM EDT 01/29/2024 11:51 PM EDT Narrative Resulting Agency Comment [id number] us Mignon Gregg MD LABORATORY Final Result Performing Organization Address City/[facility]/ZIP Co de Phone Number [facility] [address] [place] [address] * ELECTROCARDIOGRAM, TRACING (10/25/2022) Narrative Procedure Note Alexis Rodriguez - 10/25/2022 3:16 PM EST [facility] [address] [place] [address] Electrocardiograph Report Signed Patient: Analia Goetz MR# [id number] : 2000Acct:[id number] Age/Sex: 22 / F ADMDate: 10/25/22 Loc: ED Attending Dr: Ordering Physician: Palmer Donahue Date of Service: 10/25/22 Procedure(s): EKG 12 lead Accession Number(s): [id number] cc: Palmer Donahue; Mignon Gregg Test Reason : EVAL Blood Pressure : */* mmHG Vent. Rate : 119 BPM Atrial Rate : 119 BPM P-R Int : 112 ms QRS Dur : 88 ms QT Int : 436 ms P-R-T Axes : 69 78 61 degrees QTc Int : 613 ms SINUS TACHYCARDIA NONSPECIFIC T WAVE ABNORMALITY PROLONGED QT ABNORMAL ECG WHEN COMPARED WITH ECG OF 09-AUG-2021 21:22, NONSPECIFIC T WAVE ABNORMALITY NO LONGER EVIDENT IN INFERIOR LEADS Confirmed by MD Jennifre, [facility] ([id number]) on 10/25/2022 3:14:44 PM Referred By: Confirmed By: Alexis Rodriguez MD Acquiring Tech: VR Dictated By: Alexis Rodriguez Signed By: <Electronically signed by Alexis Rodriguez in OV> 10/25/22 1514 Alexis Rodriguez CARDIOVASCULAR-NO INBASKET RTG Final Result * THINPREP TIS PAP REFLEX HPV MRNA E6/E7, CT/NG, TRICH (03/07/2021 1:12 PM EDT) Clinical information None given [facility] Date last menstrual period 02/23/2021 [facility] Date of previous PAP smear NONE GIVEN [facility] Date of previous biopsy NONE GIVEN [facility] Specimen source (Cvx/Vag) None given [facility] Statement of Adequacy (Cvx/Vag) Satisfactory for evaluation. Endocervical/astorga sformation zone component present. [facility] Cytology, Pap Smear Negative for intraepithelial lesion or malignancy. [facility] Cytology study comment (Cvx/Vag) This Pap test has been evaluated with computer assisted technology. [facility] Guitar Maker Hand (Cvx/Vag) DCR, CT(ASCP) CT screening location: [place] [address] [facility] Guitar Maker Hand (Cvx/Vag) MXD, CT (ASCP) CT screening location: [address] [address] [facility] COMMENT SEE NOTE [facility] Comment: EXPLANATORY NOTE: The Pap is a screening test for cervical cancer. It is not a diagnostic test and is subject to false negative and false positive results. It is most reliable when a satisfactory sample, regularly obtained, is submitted with relevant clinical findings and history, and when the Pap result is evaluated along with historic and current clinical information. Chlamydia trachomatis rRNA NOT DETECTED NOT DETECTED [facility] Neisseria Gonorrhoeae rRNA NOT DETECTED NOT DETECTED [facility] COMMENT SEE NOTE [facility] Comment: The analytical performance characteristics of this assay, when used to test SurePath(TM) specimens have been determined by [facility]. The modifications have not been cleared or approved by the FDA. This assay has been validated pursuant to the CLIA regulations and is used for clinical purposes. For additional information, please refer to https://Infotop.fflick.Wolfpack Chassis/faq/NBG638 (This link is being provided for information/ educational purposes only.) Trichomonas vaginalis rRNA NOT DETECTED NOT DETECTED [facility] Comment: The analytical performance characteristics of this assay have been determined by [facility]. The modifications have not been cleared or approved by the FDA. This assay has been validated pursuant to the CLIA regulations and is used for clinical purposes. For additional information, please refer to http://Infotop.Pocket Change Card/ faq/Trichomonastma (This link is being provided for information/ educational purposes only.) 03/07/2021 1:12 PM EDT 03/07/2021 10:29 PM EDT Narrative Resulting Agency Comment [id number] us Navneet Roque MD PATHOLOGY-INTERFACED Final Resul t [facility] [address] [place] [address] * HEPATITIS C AB WITH REFLEX TO RNA PCR, SERUM (01/16/2017 8:21 AM EDT) Hepatitis C virus Ab NON-REACTI VE NON-REACT EUNICE [facility] Hepatitis C virus Ab Signal/Cutoff 0.01 <1.00 [facility] 01/16/2017 8:21 AM EDT 01/16/2017 12:45 PM EDT Narrative Resulting Agency Comment [id number] us Iris Scott MD LABORATORY Final Result [facility] [address] [place] [address] from Last 3 Months or Most Recently Relevant to Health Maintenance Insurance [place] * Guarantor: ANALIA GOETZ Account Type Relation to Patient Date of Phone Billing Address [employer] [address] [place] [address] [employer] Care Teams Lipcoat Sprayer Relationship Specialty Start Date End Date Jonn Roberts PA [address] [place] [address] PCP - General 11/13/24 SUPERVISOR RESPIRATORY CARE TEAM YELLOW unload associate 07/09/23
--- OUTSIDE RECORDS SUMMARY | 2024-12-03 18:03 | XMS_ITS | Encounter Summary ---
Author Organization [facility] Address [address] [place] [address] Care Team Providers Care Insulation Applicator Name Role Phone Mignon rGegg MD Primary Care Provider Unavaila Jonn Jerome Primary Care Provider Encounter Details Date Type Department Care Team (Late st Contact Info) Description 05/14/2019 Telephone [facility] [address] [place] [phone] Mignon Gregg MD Social History Tobacco Use [...] Job End Date graduated HS. going to [employer] Not on file Not on file N ot on file documented as of this encounter Plan of Treatment Not on file documented as of this encounter Visit Diagnoses Not on filedocumented in this encounter Care Teams Insulation Applicator Relationship Specialty Start Date End Date Mignon Gregg MD PCP - General 08/12/18 11/12/24 Jonn Roberts PA [address] [place] [address] PCP - General 11/13/24 MEDICAL GENETICS DIRECTOR CARE TEAM YELLOW supervisor throwing department 07/09/23 documented as of this encounter
--- OUTSIDE RECORDS SUMMARY | 2024-12-03 18:03 | XMS_ITS | Encounter Summary ---
Author Organization [facility] Address [address] [place] [address] Care Team Providers Care Social Work Specialist Name Role Phone Mignon Gregg MD Primary Care Provider UnavailJonn Finch Primary Care Provider [phone] Encounter Details Date Type Department Care Team (Late st Contact Info) Description 09/18/2024 Orders Only [facility] [address] [place] [address] Mignon Gregg MD Social History Tobacco Use [...] Encounter Note - Mignon Gregg MD - 09/18/2024 12:41 PM EST Labs are all within the normal/stable range. Amigos y Amigos message sent. documented in this encounter Plan of Treatment Not on file documented as of this encounter Procedures * Due to [place] [employer] law, this organization might not be sharing negative HIV tests. Procedure Name Priority Date/Time Associated Diagnosis Comments BASIC METABOLIC PANEL WITH (GFR) Routine 09/18/2024 12:41 PM EST Elevated glucose level documented in this encounter Results * Due to [place] [employer] law, this organization might not be sharing [...] 73m2 [facility] BUN/Creatinine Ratio SEE NOTE: 6 - 22 (calc) [facility] Comment: ?? Not Reported: [...] needs for GFR calculation. Resulting Agency Comment [id number] Mignon Gregg MD LABORATORY Final Result [facility] [address] [place] [address] documented in this encounter Visit Diagnoses Diagnosis Elevated glucose level documented in this encounter Care Teams Social Work Specialist Relationship Specialty Start Date End Date Mignon Gregg MD PCP - General 08/12/18 11/12/24 Jonn Roberts PA [address] [place] [address] PCP - General 11/13/24 RANGELAND MANAGEMENT SPECIALIST CARE TEAM YELLOW day care provider 07/09/23 documented as of this encounter
--- OUTSIDE RECORDS SUMMARY | 2024-12-03 18:03 | XMS_ITS | Encounter Summary ---
Author Organization [facility] Address [address] [place] [address] Care Team Providers Care Specialty Plant Supervisor Name Role Phone Mignon Gregg MD Primary Care Provider Unavaila ble Reason for Referral * CONSULT AND TREATMENT (Within 1 Month) - New Request Specialty Diagnoses / Procedures Referred By Contac t Referred To Contact Orthopedics Diagnoses Acute back pain, unspecified back location, unspecified back pain laterality Rosemarie Ojeda NP [address] [place] [address] Phone: tel: fax: Referral ID Status Reason Start Date Expiration Date Visits Requested Visits Authorized [id number] New Request Access / Availability 5 1 1 * Physical Therapy (Within 1 Month) - Authorized Specialty Diagnoses / Procedures Referred By Contac t Referred To Contact Physical Therapy Diagnoses Acute back pain, unspecified back location, unspecified back pain laterality Procedures [facility] NPI #[id number] [address] [place] [id number] P:[phone] F: Mignon Gregg MD [facility] [address] [place] [address] Phone: tel: fax: Referral ID Status Reason Start Date Expiration Date Visits Requested Visits Authorized [id number] Authorized Access / Availability 5 09/15/2025 30 30 Reason for Visit * Reason Comments Back Pain Encounter Details Date Type Department Care Team (Late st Contact Info) Description 11/05/2024 1:30 PM EST Office Visit [facility] [address] [place] [address] Rosemarie Ojeda NP [address] [place] [address] Acute back pain, unspecified back location, unspecified back pain laterality (Primary Dx); Mood disorder; Schizophrenia; PCOS (polycystic ovarian syndrome); Arnold-Chiari malformation, type I; Persistent central canal syrinx; Major depressive disorder, recurrent episode, in partial remission Social History Tobacco Use Types Packs/Day Years [...] on file documented as of this encounter Last Filed Vital Signs Vital Sign Reading Time Taken Comments Blood Pressure 104/86 11/05/2024 1:30 PM EST Pulse 113 11/05/2024 1:30 PM EST Temperature 37.2 ??C (98.9 ??F) 11/05/2024 1:30 PM ES T Respiratory Rate - - Oxygen Saturation 99% 11/05/2024 1:30 PM EST Inhaled Oxygen Concentration - - Weight 54 kg (119 lb) 11/05/2024 1:30 PM EST Height 149.9 cm (4' 11 ) 11/05/2024 1:30 PM EST Body Mass Index 24.04 11/05/2024 1:30 PM EST documented in this encounter Patient Instructions * Patient Instructions* Rosemarie Ojeda NP - 11/05/2024 1:30 PM EST Orthopedic consult Physical therapy consult Diclofenac 75mg twice a day for 14 days, take with breakfast & dinner. Take Tylenol 2 tablets for lunch and dinner time for breakthrough pain, max of 4 tablets daily. Try conservative therapy first. Recommended resting, stretching, applying icy hot with lidocaine ointment, and apply heat/ice therapy. * Attachments The following attachments cannot be sent through Care Everywhere. * Adult Advisor: Low Back Pain Exercises (HUNGARIAN) * Adult Advisor: Exercises for the Workplace (HUNGARIAN) * MEDICATION ADVISOR: DICLOFENAC; ORAL (HUNGARIAN) documented in this encounter Progress Notes * Rosemarie Ojeda NP - 11/05/2024 1:30 PM EST Reviewed vaccines with pt, pt declined at this time Health Maintenance Due Topic Date Due Pap Smear 03/07/2024 - *Pt sees [facility]Pt said they will book an appointment with them soon Forest Economist not necessary for this visit. No exam or procedure involving the breast, genital or rectal area is anticipated. Chief Complaint 24 y.o. female presents with: Back Pain Francy Aguero is a 24 y.o. female who is here today complaining of back pain. HPI & ROS: Reviewed office visit note 01/29/24. Back Pain Started about 3 days ago. She had a bending and had muscle and tendon strain in back a year ago, she was forced to do a work out with an at home agency with a patient. She had overstretched her back at that time frame. She did let her work know what happened, she tried to do workman's comp. She went to urgent care and did not go to physical therapy. 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 She has been doing workouts on the floor without a yoga mat lately. Located on lower back, full mid back, and left upper back. She reports she had a sharp pain, it was10/10. She reports her back does not hurt as much now. She reports she wants imaging and wants to do laser light therapy. She reports she jumped out of a window which is 2 stories in 2021, she did see someone to rule out a fracture. She landed on her buttocks. She noticed a few months ago, she noticed her leg won't kick back all the way and she cannot run as fast as she did in 2021. She reports she has not worked in 3 months. Past Medical History Patient Active Problem List Diagnosis Routine health maintenance Persistent central canal syrinx Chiari malformation type I Acne vulgaris PCOS (polycystic ovarian syndrome) Mood disorder History of psychosis Fatigue Protrusion of the jaw Schizophrenia Elevated glucose level Social History Tobacco Use Smoking status: Never Smokeless tobacco: Never Vaping Use Vaping status: Never Used Substance Use Topics Alcohol use: Yes Comment: occasionally- twice/year Drug use: No Review of patient's family history indicates: Problem: Cancer (?Type) Relation: Mother Age of Onset: 44 Comment: Kidney Problem: Hypertension Relation: Mother Age of Onset: (Not Specified) Problem: No Known or Significant Medical History Relation: Father Age of Onset: (Not Specified) Problem: Pulmonary Disorder Relation: Maternal grandfather Age of Onset: (Not Specified) Comment: smoker/ quit recently Problem: Other Relation: Other Age of Onset: (Not Specified) Comment: seizures maternal great grandmother Problem: No Known or Significant Medical History Relation: Brother Age of Onset: (Not Specified) Problem: Alcohol/Drug Relation: Neg Hx Age of Onset: (Not Specified) Problem: Allergies (med/food/envrnmt) Relation: Neg Hx Age of Onset: (Not Specified) Problem: Asthma Relation: Neg Hx Age of Onset: (Not Specified) Problem: Diabetes Relation: Neg Hx Age of Onset: (Not Specified) Problem: Heart Disorder Relation: Neg Hx Age of Onset: (Not Specified) Problem: Lipid/Cholesterol Abnormality Relation: Neg Hx Age of Onset: (Not Specified) Problem: Psych/Mental Health Relation: Neg Hx Age of Onset: (Not Specified) No Known Allergies Outpatient Medications Marked as Taking for the 11/05/24 encounter (Office Visit) with Rosemarie Ojeda NP Medication Sig Dispense Refill Amphetamine-Dextroamphetamine (ADDERALL XR) 20 MG 24 hr capsule Take 20 mg by mouth 1 (one) time each day in the morning TAKE 1 CAPSULE BY MOUTH EVERY MORNING UPON AWAKENING. Amphetamine-Dextroamphetamine (ADDERALL) 15 MG tablet Take 15 mg by mouth 1 (one) time each day TAKE 1 TABLET BY MOUTH ONCE DAILY NEEDED IN THE AFTERNOON. Spironolactone (ALDACTONE) 100 MG tablet Take one tablet (100 mg total) by mouth 1 (one) time each day. 90 tablet 0 Norethindrone-Eth Estradiol (OVCON) 0.4-35 MG-MCG per tablet Take one tablet by mouth 1 (one) time each day. 84 tablet 0 metFORMIN ER (GLUCOPHAGE-XR) 500 MG 24 hr tablet Take one tablet (500 mg total) by mouth 1 (one) time each day with breakfast AND two tablets (1,000 mg total) 1 (one) time each day with dinner. 270 tablet 1 Amphetamine-Dextroamphetamine (ADDERALL XR) 10 MG 24 hr capsule Take 10 mg by mouth 1 (one) time each day Take with 5 mg pill . Tretinoin (RETIN-A) 0.025 % cream Apply topically every night At bedtime to face. 45 g 1 Physical Examination: Blood pressure 104/86, pulse (!) 113, temperature 98.9 ??F (37.2 ??C), height 4' 11 (1.499 m), weight 119 lb (54 kg), SpO2 99%.Estimated body mass index is 24.04 kg/m?? as calculated from the following: Height as of this encounter: 4' 11 (1.499 m). Weight as of this encounter: 119 lb (54 kg). General Appearance: awake, alert, oriented x 3, in no acute distress, sitting comfortably in chair,able to move quickly from chair to exam table, jumped from exam table down and walked out the door quickly. Skin: there are no suspicious lesions or rashes of concern Back: No pain to palpation, good flexion and extension, motor and sensory appear to be normal. She has full ROM of her back, she can do flexion, extension, left/right rotation, lateral flexion. Extremities: Extremities warm to touch, pink, with no edema. Bilateral hips have full ROM, able to do flexion, extension, internal/external rotation, adduction, and abduction. Negative straight leg raise. Neuro: Normal gait. Able to sit up straight. Laboratory Information: None Impression: 1. Acute back pain, unspecified back location, unspecified back pain laterality Plan: ICD-10-CM 1. Acute back pain, unspecified back location, unspecified back pain laterality M54.9 CONSULT PHYSICAL THERAPY Diclofenac Sodium (VOLTAREN) 75 MG EC tablet CONSULT MSK (ORTHOPEDICS) 1. Acute back pain, unspecified back location, unspecified back pain laterality (Primary) Most likely a muscular strain of the back. The pt appears non toxic in appearance, afebrile, vital signs stable, she has full ROM of her back and hips, she reports she was not in pain during the office visit. Not clinically indicated to order a back MRI d/t full ROM of back, fluid movement in the office, and no pain with palpation. She appeared comfortably getting up from chair to exam table, climbing back down from exam table, and she left the exam room in a fast pace. Ordered external PT consult for further evaluation and management. Ordered external Orthopedic consult for further evaluation, they can assess pt and deem if a MRI isnecessary. Recommended starting with conservative treatment first. Recommended resting, stretching, applying icy hot with lidocaine ointment, and apply heat/ice therapy. Ordered Diclofenac 75mg twice a day for 14 days, take with breakfast & dinner. Take Tylenol 2 tablets for lunch and dinner time for breakthrough pain, max of 4 tablets daily. Follow up PRN. Call the office for any questions/concerns. documented in this encounter Plan of Treatment Scheduled Referrals Name Type Priority Associated Diagnoses Orde r Schedule CONSULT PHYSICAL THERAPY Referral Prioritized (2-4 weeks or sooner if available) Acute back pain, unspecified back location, unspecified back pain laterality Ordered: 11/05/2024 CONSULT MSK (ORTHOPEDICS) Referral Prioritized (2-4 weeks or sooner if available) Acute back pain, unspecified back location, unspecified back pain laterality Ordered: 11/05/2024 documented as of this encounter Visit Diagnoses Diagnosis Acute back pain, unspecified back location, unspecified back pain laterality- Primary Mood disorder Unspecified episodic mood disorder Schizophrenia (HCC) Unspecified schizophrenia, unspecified condition PCOS (polycystic ovarian syndrome) Polycystic ovaries Arnold-Chiari malformation, type I (HCC) Compression of brain Persistent central canal syrinx (HCC) Other myelopathy Major depressive disorder, recurrent episode, in partial remission Major depressive disorder, recurrent episode, in partial or unspecified remission documented in this encounter Care Teams Specialty Plant Supervisor Relationship Specialty Start Date End Date Mignon Gregg MD PCP - General 08/12/18 11/12/24 EXPANDED FUNCTION DENTAL ASSISTANT CARE TEAM YELLOW stretcher drier operator 07/09/23 documented as of this encounter
--- OUTSIDE RECORDS SUMMARY | 2024-12-03 18:03 | XMS_ITS | Encounter Summary ---
Author Organization [facility] Address [address] [place] [address] Care Team Providers Care Kinder Teacher Name Role Phone Mignon Gregg MD Primary Care Provider Unavaila ble Reason for Visit * Reason Comments Medication Problem Encounter Details Date Type Department Care Team (Late st Contact Info) Description 11/09/2024 Telephone [facility] [address] [place] [address] Mignon Gregg MD Medication Problem Social History Tobacco Use Types Packs/Day Years [...] encounter Miscellaneous Notes * Telephone Encounter - Stephanie Galloway, Pharmacy Navigator - 11/09/2024 10:16 AM EST Called pharmacy to confirm receipt of Rx dated 11/05/24 Pharmacist Ashia Ly stated Rx was picked up yesterday Called patient to clarify and was unable to reach - vm was not set up to leave a message Sent [employer] message * Telephone Encounter - Pooja Corey - 11/09/2024 10:11 AM EST Patient states her pharmacy did not receive the following RX and is requesting to have it refaxed. Diclofenac Sodium (VOLTAREN) 75 MG EC tablet [id number] [address] documented in this encounter Plan of Treatment Not on file documented as of this encounter Visit Diagnoses Not on filedocumented in this encounter Care Teams Kinder Teacher Relationship Specialty Start Date End Date Mignon Gregg MD PCP - General 08/12/18 11/12/24 FOREST FIRE OFFICER CARE TEAM REFUGIO tie hacker 07/09/23 documented as of this encounter
--- OUTSIDE RECORDS SUMMARY | 2024-12-03 18:03 | XMS_ITS | Encounter Summary ---
Author Organization [facility] Address [address] [place] [address] Care Team Providers Care Rn Rehabilitation Name Role Phone Mignon Gregg MD Primary Care Provider Unavaila ble Reason for Referral * Physical Therapy (Routine) - Authorized Specialty Diagnoses / Procedures Referred By Contac t Referred To Contact Physical Therapy Diagnoses Acute back pain, unspecified back location, unspecified back pain laterality Procedures [facility] [address] [place] [address] Mignon Gregg MD Referral ID Status Reason Start Date Expiration Date Visits Requested Visits Authorized [id number] Authorized Access / Availability 09/15/2025 30 30 Reason for Visit * Reason Comments Referral Request Encounter Details Date Type Department Care Team (Late st Contact Info) Description 11/09/2024 Telephone [facility] [address] [place] [phone] Mignon Gregg MD Referral Request Social History Tobacco Use Types Packs/Day [...] encounter Miscellaneous Notes * Telephone Encounter - Mignon Gregg MD - 11/10/2024 10:14 AM EST Referral sent * Telephone Encounter - Karis Escalante - 11/09/2024 1:25 PM EST Pt calling in to request PT referral for back pain Order pended if in agreement [facility] [address] [place] [address] No DOS documented in this encounter Plan of Treatment Scheduled Referrals Name Type Priority Associated Diagnoses Orde r Schedule CONSULT PHYSICAL THERAPY Referral Routine (within 3 months) Acute back pain, unspecified back location, unspecified back pain laterality Ordered: 11/10/2024 documented as of this encounter Visit Diagnoses Diagnosis Acute back pain, unspecified back location, unspecified back pain laterality documented in this encounter Care Teams Rn Rehabilitation Relationship Specialty Start Date End Date Mignon Gregg MD PCP - General 08/12/18 11/12/24 VICE PRESIDENT SALES CARE TEAM YELLOW tape sewing machine operator 07/09/23 documented as of this encounter
--- OUTSIDE RECORDS SUMMARY | 2024-12-03 18:03 | XMS_ITS | Encounter Summary ---
Author Organization [facility] Address [address] [place] [address] Care Team Providers Care Tier Lift Truck Operator Name Role Phone Mignon Gregg MD Primary Care Provider UnavailJonn Finch Primary Care Provider Encounter Details Date Type Department Care Team ([facility] st Contact Info) Description 10/13/2020 Orders Only [facility] SEED BUYER [address] [place] [address] Kenyon Arrington MD Social History Tobacco Use Types Packs/Day [...] Job End Date graduated HS. going to [employer] Not on file Not on file N ot on file COVID-19 Exposure Response Date Recorded In the last month, have you been in contact with someone who was confirmed or suspected to have Coronavirus / COVID-19? No / Unsure 10/14/2020 2:39 PM EST documented as of this encounter Progress Notes * Lubna Drummond - 10/13/2020 4:25 PM EST Blood work done for workup for PCOS, does not have appt, please review and give recommendations? * Kenyon Arrington MD - 10/13/2020 4:25 PM EST Awaiting US results but BW is consistent with PCOS * Lubna Drummond - 10/13/2020 4:25 PM EST Outreach made to pt with results and recommendations. See t/e 10/14/2020 documented in this encounter Plan of Treatment Not on file documented as of this encounter Procedures * Due to [place] state law, this organization might not be sharing negative HIV tests. Procedure Name Priority Date/Time Associated Diagnosis Comments PROGESTERONE, SERUM Routine 10/13/2020 4 :25 PM EST Anovulation PCOS (polycystic ovarian syndrome) VENIPUNCTURE Routine 10/13/2020 4:25 PM EST Anovulation PCOS (polycystic ovarian syndrome) DHEA SULFATE Routine 10/13/2020 4:25 PM EST Anovulation PCOS (polycystic ovarian syndrome) documented in this encounter Results * Due to [place] state law, this organization might not be sharing negative HIV tests. * PROGESTERONE, SERUM (10/13/2020 4:25 PM EST) Progesterone 3.3 ng/mL [facility] Comment: ?Reference Ranges ? Female ?Follicular Phase ? < 1.0 ?Luteal Phase ?2.6-21.5 ?Post menopausal ?< 0.5 ?1st Trimester ? 4.1-34.0 ?2nd Trimester ?24.0-76.0 ?3rd Trimester ?? 52.0-302.0 10/13/2020 4:25 PM EST 10/13/2020 11:43 PM EST Narrative Resulting Agency Comment [id number] Kenyon Arrington MD LAB SAME DAY RESULT Final R esult Performing Organization Address [facility] de Phone Number [facility] [address] [place] [address] * (ABNORMAL) DHEA SULFATE (10/13/2020 4:25 PM EST) DHEA SULFATE 355(H) 51 - 321 mcg/dL [facility] 10/13/2020 4:25 PM EST 10/13/2020 11:43 PM EST Narrative Resulting Agency Comment [id number] Kenyon Arrington MD LABORATORY Final Resul t Performing Organization Address [facility] Phone Number [facility] [address] [place] [address] * LUTEINIZING HORMONE (LH), SERUM (10/13/2020 4:25 PM EST) Luteinizing Hormone (LH) 7.0 mIU/mL [facility] Comment: ? Reference Range ? Follicular Phase ??1.9-12.5 ? Mid-Cycle Peak ?8.7-76.3 ? Luteal Phase ?0.5-16.9 ? Postmenopausal ?10.0-54.7 10/13/2020 4:25 PM EST 10/13/2020 11:43 PM EST Narrative Resulting Agency Comment [id number] Kenyon Arrington MD LAB SAME DAY RESULT Final R esult Performing Organization Address [facility] de Phone Number [facility] [address] [place] [address] documented in this encounter Visit Diagnoses Diagnosis Anovulation Female infertility associated with anovulation PCOS (polycystic ovarian syndrome) Polycystic ovaries documented in this encounter Care Teams Tier Lift Truck Operator Relationship Specialty Start Date End Date Mignon Gregg MD PCP - General 08/12/18 11/12/24 Jonn Roberts PA [address] [place] [address] PCP - General 11/13/24 STAFF NUCLEAR MEDICINE TECHNOLOGIST CARE TEAM REFUGIO enterprise project manager 07/09/23 documented as of this encounter
--- OUTSIDE RECORDS SUMMARY | 2024-12-03 18:03 | XMS_ITS | Encounter Summary ---
Author Organization [facility] Address [address] [place] [address] Care Team Providers Care Hot Box Operator Name Role Phone Mignon Gregg MD Primary Care Provider Unavaila Jonn Jerome Primary Care Provider Encounter Details Date Type Department Care Team (Late st Contact Info) Description 07/21/2019 Telephone [facility] [address] [place] [phone] Mignon Gregg MD Social History [...] Job End Date graduated HS. going to [employer] Not on file Not on file N ot on file documented as of this encounter Plan of Treatment Not on file documented as of this encounter Visit Diagnoses Not on filedocumented in this encounter Care Teams Hot Box Operator Relationship Specialty Start Date End Date Mignon Gregg MD PCP - General 08/12/18 11/12/24 Jonn Roberts PA [address] [place] [address] PCP - General 11/13/24 COMMODITY BUYER CARE TEAM YELLOW manager people 07/09/23 documented as of this encounter
--- OUTSIDE RECORDS SUMMARY | 2024-12-03 18:03 | XMS_ITS | Encounter Summary ---
Author Organization [facility] Address [address] [place] [address] Care Team Providers Care Marine Radio Installer And Servicer Name Role Phone Mignon Gregg MD Primary Care Provider UnavailJonn Finch Primary Care Provider Encounter Details Date Type Department Care Team (Late st Contact Info) Description 01/29/2024 Orders Only [facility] [address] [place] [address] Mignon Gregg MD Social History Tobacco Use [...] Encounter Note - Mignon Gregg MD - 01/29/2024 4:30 PM EDT [employer] message sent documented in this encounter Plan of Treatment Not on file documented as of this encounter Procedures * Due to [place] [employer] law, this organization might not be sharing negative HIV tests. Procedure Name Priority Date/Time Associated Diagnosis Comments THYROID CASCADING REFLEX Routine 01/29/2024 4:30 PM EDT Weight gain HEMOGLOBIN A1C Routine 01/29/2024 4:30 PM EDT Elevated glucose level LIPID PANEL WITH REFLEX TO DIRECT LDL Routine 01/29/2024 4:30 PM EDT Screening for hyperlipidemia documented in this encounter Results * Due to [place] [employer] law, this organization might not be sharing negative HIV tests. * HEMOGLOBIN A1C (01/29/2024 4:30 PM EDT) Hemoglobin A1C 5.2 <5.7 % of total Hgb [facility] Comment: For the purpose of screening for the presence of diabetes: <5.7% ? Consistent with the absence of diabetes 5.7-6.4% ?Consistent with increased risk for diabetes ?(prediabetes) > or =6.5% ??Consistent with diabetes This assay result is consistent with a decreased risk of diabetes. Currently, no consensus exists regarding use of hemoglobin A1c for diagnosis of diabetes in children. According to [place] Diabetes Association (ADA) guidelines, hemoglobin A1c <7.0% represents optimal control in non- diabetic patients. Different metrics may apply to specific patient populations. Standards of Medical Care in Diabetes(ADA). Estimated Average Glucose 108 mg/dL (calc) [facility] 01/29/2024 4:30 PM EDT 01/29/2024 11:51 PM EDT Narrative Resulting Agency Comment [id number] Mignon Gregg MD LABORATORY Final Result Performing Organization Address [facility] de Phone Number [facility] [address] [place] [address] * THYROID CASCADING REFLEX (01/29/2024 4:30 PM EDT) TSH 1.20 mIU/L [facility] Comment: ?Reference Range ?> or = 20 Years ??0.40-4.50 ? Ranges ?First trimester ?0.26-2.66 ?Second trimester ?? 0.55-2.73 ?Third trimester ?0.43-2.91 01/29/2024 4:30 PM EDT 01/29/2024 11:51 PM EDT Narrative Resulting Agency Comment [id number] Mignon Gregg MD LABORATORY Final Result Performing Organization Address [facility] de Phone Number [facility] [address] [place] [address] * (ABNORMAL) LIPID PANEL WITH REFLEX TO [...] factors. LDL-C is now calculated using the Stanford calculation, which is a validated novel method providing better accuracy than the Friedewald equation in the estimation of LDL-C. Kaleb CAVAZOS et al. ILDIA. 2013;310(19): 0129-7028 (http://education.[employer]/faq/NOK192) CHOL/HDL Ratio 3.2 <5.0 (calc) [facility] Cholesterol Non-HDL 126 <130 mg/dL (calc) [facility] Comment: For patients with diabetes plus 1 major ASCVD risk factor, treating to a non-HDL-C goal of <100 mg/dL (LDL-C of <70 mg/dL) is considered a therapeutic option. 01/29/2024 4:30 PM EDT 01/29/2024 11:51 PM EDT Narrative Resulting Agency Comment [id number] us Mignon Gregg MD LABORATORY Final Result [facility] [address] [place] [address] documented in this encounter Visit Diagnoses Diagnosis Screening for hyperlipidemia Screening for lipoid disorders Weight gain Abnormal weight gain Elevated glucose level documented in this encounter Care Teams Marine Radio Installer And Servicer Relationship Specialty Start Date End Date Mignon Gregg MD PCP - General 08/12/18 11/12/24 Jonn Roberts PA [address] [place] [address] PCP - General 11/13/24 THERMOCOUPLE TESTER CARE TEAM REFUGIO critical care educator 07/09/23 documented as of this encounter
--- OUTSIDE RECORDS SUMMARY | 2024-12-03 18:03 | XMS_ITS | Encounter Summary ---
Author Organization [facility] Address [address] [place] [address] Care Team Providers Care Packaging Sales Name Role Phone Mignon Gregg MD Primary Care Provider Unavaila Jonn Jerome Primary Care Provider [phone] Encounter Details Date Type Department Care Team (Late st Contact Info) Description 05/26/2019 Orders Only [address] [phone] Tammy Heaton PA Social History Tobacco Use Types Packs/Day Years [...] Job End Date graduated HS. going to [employer] Not on file Not on file N ot on file documented as of this encounter Plan of Treatment Not on file documented as of this encounter Visit Diagnoses Not on filedocumented in this encounter Care Teams Packaging Sales Relationship Specialty Start Date End Date Mignon Gregg MD PCP - General 08/12/18 11/12/24 Jonn Roberts PA [address] [place] [address] PCP - General 11/13/24 PARTS SALES REPRESENTATIVE CARE TEAM YELLOW lawn service manager 07/09/23 documented as of this encounter
--- OUTSIDE RECORDS SUMMARY | 2024-12-03 18:03 | XMS_ITS | Encounter Summary ---
Author Organization [facility] Address [address] [place] [address] Care Team Providers Care Marine Consultant Name Role Phone Mignon Gregg MD Primary Care Provider Jonn Shelton Primary Care Provider Encounter Details Date Type Department Care Team (Late st Contact Info) Description 03/07/2021 Orders Only [facility] [address] [place] [address] Navneet Roque MD [address] [place] [address] Social History Tobacco Use Types Packs/Day Years [...] file Not on file Not on file COVID-19 Exposure Response Date Recorded In the last month, have you been in contact with someone who was confirmed or suspected to have Coronavirus / COVID-19? No / Unsure 02/07/2021 2:31 PM EDT documented as of this encounter Miscellaneous Notes * Result Encounter Note - Neymar Sky MD - 03/07/2021 1:12 PM EDT Pap smear and gynecologic cultures are negative dating back to February. We hope you are already aware of these findings but apologize for any delay in results. documented in this encounter Plan of Treatment Not on file documented as of this encounter Procedures * Due to [place] [employer] law, this organization might not be sharing negative HIV tests. Procedure Name Priority Date/Time Associated Diagnosis Comments THINPREP TIS PAP REFLEX HPV MRNA E6/E7, CT/NG, TRICH Routine 03/07/2021 1:12 PM EDT Screening for cancer CHLAMYDIA TRACHOMATIS/N. GONORRHOEAE (GC) RNA, TMA (APTIMA GENITAL SWAB) Routine 03/07/2021 1:12 PM EDT Screening for STD (sexually transmitted disease) documented in this encounter Results * Due to [place] [employer] law, this organization might not be sharing negative HIV tests. * THINPREP TIS PAP REFLEX HPV MRNA [...] evaluated with computer assisted technology. [facility] Warehouse Record Clerk (Cvx/Vag) DCR, CT(ASCP) CT screening location: [place] [address] [facility] Warehouse Record Clerk (Cvx/Vag) MXD, CT (ASCP) CT screening location: [address] [address] [employer] COMMENT SEE NOTE [employer] Comment: EXPLANATORY NOTE: The Pap is a [...] Chlamydia trachomatis rRNA NOT DETECTED NOT DETECTED [email or web address] Neisseria Gonorrhoeae rRNA NOT DETECTED NOT DETECTED [employer] COMMENT SEE NOTE [employer] Comment: The analytical performance characteristics of this assay, when used to test SurePath(TM) specimens have been determined by [facility]. The modifications have not been cleared or approved by the FDA. This assay has been validated pursuant to the CLIA regulations and is used for clinical purposes. For additional information, please refer to https://[employer]/faq/JBZ078 (This link is being provided for information/ educational purposes only.) Trichomonas vaginalis rRNA NOT DETECTED NOT DETECTED [employer] Comment: The analytical performance characteristics of this assay have been determined by [facility]. The modifications have not been cleared or approved by the FDA. This assay has been validated pursuant to the CLIA regulations and is used for clinical purposes. For additional information, please refer to http://[employer]/ faq/Trichomonastma (This link is being provided for information/ educational purposes only.) 03/07/2021 1:12 PM EDT 03/07/2021 10:29 PM EDT Narrative Resulting Agency Comment [id number] us Navneet Roque MD PATHOLOGY-INTERFACED Final Resul t [employer] [address] [place] [address] * CHLAMYDIA TRACHOMATIS/N. GONORRHOEAE (GC) RNA, TMA (APTIMA GENITAL SWAB) (03/07/2021 1:12 PM EDT) Chlamydia trachomatis rRNA NOT DETECTED NOT DETECTED [email or web address] Neisseria Gonorrhoeae rRNA NOT DETECTED NOT DETECTED [employer] COMMENT SEE NOTE [employer] Comment: The analytical performance characteristics of this assay, when used to test SurePath(TM) specimens have been determined by [facility]. The modifications have not been cleared or approved by the FDA. This assay has been validated pursuant to the CLIA regulations and is used for clinical purposes. For additional information, please refer to https://education.[employer]/faq/QUI800 (This link is being provided for information/ educational purposes only.) 03/07/2021 1:12 PM EDT 03/07/2021 10:21 PM EDT Narrative Resulting Agency Comment [id number] us Navneet Roque MD LABORATORY Final Result [employer] [address] [place] [address] documented in this encounter Visit Diagnoses Diagnosis Screening for STD (sexually transmitted disease) Screening examination for venereal disease Screening for cancer Screening for unspecified malignant neoplasm documented in this encounter Care Teams Marine Consultant Relationship Specialty Start Date End Date Mignon Gregg MD PCP - General 08/12/18 11/12/24 Jonn Roberts PA [address] [place] [address] PCP - General 11/13/24 CONSTRUCTION ENGINEER CARE TEAM YELLOW pricing coordinator 07/09/23 documented as of this encounter
--- OUTSIDE RECORDS SUMMARY | 2024-12-03 18:03 | XMS_ITS | Encounter Summary ---
Author Organization [facility] Address [address] [place] [address] Care Team Providers Care Recruiting Internship Name Role Phone Mignon Gregg MD Primary Care Provider Jonn Shelton Primary Care Provider Reason for Visit * Reason Comments Letter/form Request Encounter Details Date Type Department Care Team (Late st Contact Info) Description 04/24/2019 Telephone [facility] [address] [place] [phone] Mignon Gregg MD Letter/form Request Social History Tobacco Use Types Packs/Day [...] Job End Date graduated HS. going [facility] [employer] Not on file Not on file N ot on file documented as of this encounter Miscellaneous Notes * Telephone Encounter - Gely Tsai - 04/24/2019 9:52 AM EDT Patient called requesting results of her PPD be faxed to: [facility] F# [phone] Printed and faxed to number above documented in this encounter Plan of Treatment Not on file documented as of this encounter Visit Diagnoses Not on filedocumented in this encounter Care Teams Recruiting Internship Relationship Specialty Start Date End Date Mignon Gregg MD PCP - General 08/12/18 11/12/24 Jonn Roberts PA [address] [place] [address] PCP - General 11/13/24 DATA VISUALIZATION DEVELOPER CARE TEAM REFUGIO supervisor newspaper deliveries 07/09/23 documented as of this encounter
--- OUTSIDE RECORDS SUMMARY | 2024-12-03 18:03 | XMS_ITS | Encounter Summary ---
Author Organization [facility] Address [address] [place] [address] Care Team Providers Care Injection Specialist Name Role Phone Jonn Roberts Primary Care Provider [phone] Reason for Visit * Reason Comments Abdominal Pain Encounter Details Date Type Department Care Team ([facility] st Contact Info) Description 11/24/2024 Telephone [facility] [address] [place], [place] [phone] Jonn Roberts PA [address] [place] [address] Abdominal Pain Social History Tobacco Use Types Packs/Day [...] encounter Miscellaneous Notes * Telephone Encounter - Elyssa Kumar LPN - 11/24/2024 12:44 PM EDT Disposition/plan: Booked same day appointment with PCP today at 4 pm. Disease Management Program Membership: None Pt had norovirus prior to experiencing symptoms -2 days after symptoms resolved this new sensation began Pt is interested in having a H. Pylori test Chief complaint: Patient, Francy Aguero female 24 y.o. calling with complaint of abdominal pain. Onset: 3 week(s) ago . Emergent/Urgent symptoms: Patient denies recent abdominal trauma or surgery; is not having severe pain, hard/rigid abdomen, or lightheadedness, and has not had bloody or dark, coffee-ground emesis. Location: right center of lower abd Intensity of pain: changes with consuming food or liquids Quality of pain: churning sensation, indigestion Associated symptoms/ROS: abdominal swelling/bloating and poor appetite/loss of appetite Travel: Have you traveled outside the [place] within the last 3 weeks? No Hydration: voiding well PO intake: normal LMP: N/A Pertinent history: patient denies any pertinent GI history, recent injury, recent travel or camping, new medications, and has not been exposed to anyone with similar symptoms Current home [place]: OTC/Medications- NA Effectiveness of home treatment: N/A * Telephone Encounter - Ramone Nathan - 11/24/2024 12:13 PM EDT Pt calling in requesting a Breath test to see if pt has bacteria in stomach. Pt states for over 3 weeks every time she eats her stomach turns and feels upset. States it could be something she caught from work Call transferred to nursing documented in this encounter Plan of Treatment Not on file documented as of this encounter Visit Diagnoses Not on filedocumented in this encounter Care Teams Injection Specialist Relationship Specialty Start Date End Date Jonn Roberts PA [address] [place] [address] PCP - General 11/13/24 TERMINAL MAKE UP OPERATOR CARE TEAM YELLOW pollution control engineer 07/09/23 documented as of this encounter
--- OUTSIDE RECORDS SUMMARY | 2024-12-03 18:03 | XMS_ITS | Encounter Summary ---
Author Organization [facility] Address [address] [place] [address] Care Team Providers Care Medical Terminologist Name Role Phone Jonn Lobo Primary Care Provider [phone] Reason for Referral * Physical Therapy (Routine) - New Request Specialty Diagnoses / Procedures Referred By Karlene chakraborty Referred To Contact Physical Therapy Diagnoses Acute back pain, unspecified back location, unspecified back pain laterality Jonn Lobo PA [address] [place] [address] Phone: tel: fax: Referral ID Status Reason Start Date Expiration Date Visits Requested Visits Authorized [id number] New Request Patient Preference 12/03/2024 1 1 Scheduling Instructions [facility] [id number] [phone] -fax [phone]-Phone DX:Acute Back Pain 12 visits Reason for Visit * Reason Comments Labs/orders Encounter Details Date Type Department Care Team (Late st Contact Info) Description 12/02/2024 Telephone Virtual [address] [phone] Jonn Lobo PA [address] [place] [address] Labs/orders Social History Tobacco Use Types Packs/Day Years [...] as of this encounter Miscellaneous Notes * Addendum Note - Jonn oLbo PA - 12/03/2024 4:32 PM EDTAddended by: JONN LOBO on: 12/03/2024 04:32 PM Modules accepted: Orders * Telephone Encounter - Jonn Lobo PA - 12/03/2024 4:31 PM EDT Sent. Please book PE. VV ok * Addendum Note - Ca Bird - 12/03/2024 4:28 PM EDTAddended by: CA BIRD on: 12/03/2024 04:28 PM Modules accepted: Orders * Telephone Encounter - Ca Bird - 12/03/2024 4:25 PM EDT [facility] [id number] [phone] -fax [phone]-Phone DX:Acute Back Pain 12 visits Order pended * Telephone Encounter - Scott Noble - 12/02/2024 2:31 PM EDT Pt would like a new order for PT to be placed for this location. She would like a call when referral has been placed [facility] [address] [place] [address] [address], [place] [address] documented in this encounter Plan of Treatment Scheduled Referrals Name Type Priority Associated Diagnoses Orde r Schedule CONSULT PHYSICAL THERAPY Referral N/A - Already Scheduled Acute back pain, unspecified back location, unspecified back pain laterality Ordered: 12/03/2024 documented as of this encounter Visit Diagnoses Diagnosis Acute back pain, unspecified back location, unspecified back pain laterality- Primary documented in this encounter Care Teams Medical Terminologist Relationship Specialty Start Date End Date Jonn Lobo PA [address] [place] [address] PCP - General 11/13/24 OUTPATIENT SERVICES DIRECTOR CARE TEAM YELLOW substitute crossing guard 07/09/23 documented as of this encounter
--- OUTSIDE RECORDS SUMMARY | 2024-12-03 18:03 | XMS_ITS | Encounter Summary ---
Author Organization [facility] Address [address] [place] [address] Care Team Providers Care Batter Scaler Name Role Phone Mignon Gregg MD Primary Care Provider Unavaila Jonn Jerome Primary Care Provider Encounter Details Date Type Department Care Team ([facility] st Contact Info) Description 07/23/2019 Orders Only [facility] Otolaryngology [address] [facility] [address] [place] [address] Clovis Mcdaniels PA [address] [place], [place] [phone] Social History Tobacco Use Types Packs/Day Years [...] End Date graduated HS. going to [employer] Not on file Not on file N ot on file documented as of this encounter Plan of Treatment Not on file documented as of this encounter Procedures * Due to [place] state law, this organization might not be sharing negative HIV tests. Procedure Name Priority Date/Time Associated Diagnosis Comments CULTURE, FUNGUS, W/SMEARHAIR, SKIN, NAIL Routine 07/23/2019 4:00 PM EST Acute diffuse otitis externa of left ear CULTURE,AEROBIC WOUND,SUPERFICIAL Routine 07/23/2019 4:00 PM EST Acute diffuse otitis externa of left ear documented in this encounter Results * Due to [facility] law, this organization might not be sharing negative HIV tests. * (ABNORMAL) CULTURE, FUNGUS, W/SMEARHAIR, SKIN, NAIL (07/23/2019 4:00 PM EST) Fungus identified SEE NOTE(A) [facility] Comment: ??CULTURE,FUNGUS,SKIN,HAIR, NAIL W/DIRECT FLUOR/JAMAAL ??Micro Number: ?[id number] ??Test Status: ? Final ??Specimen Source: ?? L EAR ??Specimen Quality: ??Adequate ??Smear: ? No fungal elements seen. ??Result: ?Moderate growth of Deann parapsilosis species complex 07/23/2019 4:00 PM EST 07/23/2019 10:13 PM EST Narrative Resulting Agency Comment [id number] us [facility] Final Result [facility] [address] [place] [address] * CULTURE, WOUND, SUPERFICIAL (07/23/2019 4:00 PM EST) Bacteria culture SEE NOTE [facility] Comment: ??CULTURE, AEROBIC BACTERIA ??Micro Number: ?[id number] ??Test Status: ? Final ??Specimen Source: ?? L EAR ??Specimen Quality: ??Adequate ??Result: ?Heavy growth of Yeast Isolated. ? Please contact the laboratory within 3 days if ? further identification is desired. ??COMMENT: ? Skin aric also present. 07/23/2019 4:00 PM EST 07/23/2019 10:13 PM EST Narrative Resulting Agency Comment [id number] us [facility] Final Result [facility] [address] [place] [address] documented in this encounter Visit Diagnoses Diagnosis Acute diffuse otitis externa of left ear documented in this encounter Care Teams Batter Scaler Relationship Specialty Start Date End Date Mignon Gregg MD PCP - General 08/12/18 11/12/24 Jonn Roberts PA [address] [place] [address] PCP - General 11/13/24 FOREST FIRE CONTROL OFFICER CARE TEAM YELLOW application architect manager 07/09/23 documented as of this encounter
== END 2024-12-03 16:43 | disposition home or self-care (01) ==
PROVIDERS: Visit Provider Nurse Practitioner Family
DX: Z13.88 Encounter for screening for disorder due to exposure to contaminants (principal)

== ENCOUNTER → 2024-12-03 16:06 | Outpatient (BNVA) | payer OTHER, SELFPAY | PROVIDERS: Visit Provider Nurse Practitioner Family ==

== ENCOUNTER → 2025-02-02 11:34 | Outpatient (BNVA) | payer OTHER, SELFPAY | DX: Z13.89 Encounter for screening for other disorder (principal) ==